=== PATIENT | male | born 1960 | race Hispanic/Latino ===

== ENCOUNTER 2016-10-05 02:30 | Inpatient (IN) | payer OTHER ==
[~2016-10-05] VITALS: Ht 175.3 cm; Wt 98.0 kg
[~2016-10-05 02:30] MED LIST: AMITRIPTYLINE H25 M2 PO; CRESTOR10 M1 PO; CRESTOR40 M2 PO; CYCLOBENZAPRINE5 M2 PO; DIVALPROEX SOD500 M3 PO; LORTAB 10-3251 EACH PO; MEDROL4 M2 PO; NAPROXEN500 M2 PO; PANTOPRAZOLE SO40 M1 PO; PERCOCET 5-3251 EACH PO; VITAMIN D1000 UNIT PO; VITAMIN D250000 UNIT PO
--- NOTE | 2016-10-05 10:14 | Operative Report ---
Operative/Inv Procedure Report Surgery Date: 10/05/16 Name of Procedure: Right total knee arthroplasty Pre-Operative Diagnosis: Right knee degenerative joint disease Post-Operative Diagnosis: Right knee degenerative joint disease Estimated Blood Loss: 50ml to 100ml Surgeon/Pattern Worker: DANIA TREVIÑO,TIKI SOL Anesthesia: block, spinal Implants: [employer] size 6 right cruciate retaining legion Oxinium femoral component. Size 6 Nat II right nonporous tibial baseplate. Size 5-6 9 mm Legion cruciate retaining XLPE high flexion articular insert. Size 23 mm Nat II biconvex patellar component. Complications: None Condition: Stable to PACU Operative Indication: This is a 56-year-old male with severe right knee pain that has failed conservative care as well as arthroscopy. Risks and benefits of the procedure were discussed with the patient at length. Risks include but are not limited to nerve damage, muscle damage, infection, blood loss, blood clots, pulmonary embolus, and even . The patient agreed to the above risks and elected to proceed with surgery. Operative/Procedure Note Note: The patient was taken to the operating room. Anesthesia was induced after the timeout was performed. The lower extremity was prepped and draped in the normal sterile fashion. IV antibiotics were given prior to incision. The site marking was visualized prior to incision. After the leg was prepped and draped, an esmarch was used to exsanguinate the extremity. The tourniquet was inflated. A midline incision was made proximal to the patella extending down to the tibial tubercle. A medial parapatellar approach was then made. The skin was retracted and the extensor mechanism was incised. The knee was taken down into full extension. The patellar fat pad was resected. The medial retinaculum was then taken down. The synovium over the distal femur was then resected. The patella was everted and the knee was flexed up. The lateral meniscus was then excised. The ACL was removed. A drill was then used to open up the distal femur. The intramedullary guide was then applied. A 6 distal femoral cut was then made. The femur was then sized. The chamfer guide was then applied. The anterior, posterior, and chamfer cuts were then made while protecting the patellar tendon with a Hohmann retractor in the medial collateral ligament with a Z retractor. A pickle fork was then used to deliver the tibia. The extramedullary tibial guide was then applied. The proximal tibial cut was made. The medial and lateral meniscus were then excised. The osteophytes were removed with a Rongeur. The tibia was sized and the trial base plate was then pinned in place. A trial femoral component was placed and a trial polyethylene insert was then applied as well. It was noted to be tight as such the tibia was recut and the flexion and extension gaps were then checked. The femoral trial as well as tibial trial was then again pinned in place. The poly-trial was placed. The knee was taken through a range of motion and was noted to be quite stable. The patella was then everted, sized, and then reamed. A trial patellar component was placed and the knee was taken through range of motion. The patella was noted to be quite stable. All trial instruments were then removed. The knee was copiously irrigated. Retractors were placed in the final components were then cemented in. A trial polyethylene insert was then placed. After the cement was hardened, the excess cement was removed. The trial poly-insert was then removed. The knee was copiously irrigated. The final poly insert was inserted. The tourniquet was let down. Any bleeding vessels were identified and cauterized. A 1/8 inch Hemovac drain was then placed. The extensor mechanism was closed with #1 Vicryl suture in a simple interrupted fashion. The skin was closed with 2-0 Vicryl suture. A running subcuticular 4-0 Monocryl stitch was then placed. Dermabond was applied. A dry sterile dressing was placed and patient was transferred to PACU in stable condition.
--- NOTE | 2016-10-05 10:29 | Admission Core Measures ---
Admission Meds I reviewed the following Meds: Current Medications Sig/Cyndi Start time Last Medication Dose Stop Time Status Admin Cefazolin Sodium 2,000 MG ONCE 10/05 0000 NR (Kefzol-Ancef Inj) 10/05 2359 Ropivacaine 500 ML ONCE ONE 10/05 0900 AC (NAROPIN) 10/07 0239 ON-Q Ball 1 BAG Acute Coronary Syndrome Inclusion Criteria ACS Diagnosis No Inpatient Core Measures LDL Reminder: If No, please order W/I first 24hr of stay Congestive Heart Failure Inclusion Criteria CHF Diagnosis No Cerebrovascular accident Inclusion Criteria CVA/TIA Diagnosis No Inpatient Core Measures Bedside Swallow Eval Reminder: If BSE failed, place ST order Antithrombotic Reminder: Order Antithrombotic Medication by end of day 2 Antithrombotic Reminder: Document Reason Antithrombotic Not ordered by end of day 2 AFIB/Flutter Reminder: If Present, add to problem list AFIB/Flutter Reminder: Order Anticoag Medication for pts with AFIB/Flutter Atherosclerosis Reminder: If Present, add to problem list LDL Reminder: If No, please order W/I first 24hr of stay PT Order Reminder: If No, please order Venous thromboembolism Inpatient Core Measures VTE Risk Factors: Age > 40, Surgery VTE Prophylaxis Ordered Inpt Mech & Pharm No Mech VTE prophylaxis d/t No contraindications No VTE Pharm Prophylaxis d/t No contraindications Inclusion Criteria - Per Current guidelines, there needs to be overlap - treatment for the first 5 days of Warfarin therapy. - Parenteral Anticoagulation (IV or SC) needs to be - given along with Warfarin therapy. VTE Diagnosis No VTE Type NONE VTE Confirmed by (Test) NONE Problem List As ranked by this Provider includes Assessment & Plan 1. S/P total knee arthroplasty HOME MEDS Home Med List Amitriptyline HCl 25 MG TABLET 1 TAB PO BID PAIN (Reported) Cholecalciferol (Vitamin D3) (Vitamin D) 1,000 UNIT TABLET 1 TAB PO DAILY SUPPLEMENT (Reported) Divalproex Sodium (Divalproex Sodium ER) 500 MG TAB.ER.24H 2 TAB PO BID SEIZURES/PAIN (Reported) Naproxen 500 MG TABLET 1 TAB PO DAILY PAIN (Reported) Rosuvastatin Calcium (Crestor) 40 MG TABLET 1 TAB PO DAILY CHOLESTEROL ( Reported)
--- NOTE | 2016-10-05 15:30 | NUR ---
NURSING NOTE: PATIENT ARRIVED TO FLOOR VIA STRETCHER WITH DISTRIBUTION FROM PACU. PATIENT A/OX3, C/O PAIN TO R KNEE 04/09. DILAUDID GIVEN PER ORDER. ON Q PUMP IN PLACE TO R ADDUCTOR CANAL 5CM RUNNING AT 14ML/HR ALL CLAMPS OPEN. RAJESH WRAP IN PLACE TO RLE. + CMS NOTED. VSS. WILL CONTINUE TO MONITOR.
[2016-10-05 16:00] VITALS: BP 150/92
--- NOTE | 2016-10-05 17:38 | PN- Orthopedic ---
Subjective Subjective: Post Op Note s/p right TKA Patient without c/o. Pain well controlled. Tolerating PO, no n/v. OOB to bathroom. unable to void denies CP/SOB Objective Vital Signs and I&Os Vital Signs Date Time Temp Pulse Resp B/P Pulse O2 O2 Flow FiO2 Ox Delivery Rate 10/05 1729 Room Air Room Air 10/05 1600 99.3 88 18 150/92 92 Room Air Physical Exam: General: NAD, comfortable, A&Ox3 Chest: CTAB. Heart S1S2 normal. Abdomen: soft, nontender, nondistended. Ext: Right knee dressing c/d/i. On Q pump in place. CAROLINE drain in place with serosanguineous drainage. No calve swelling/TTP, neurovascularly intact bilateral lower extremities Current Medications: Current Medications Sig/Cyndi Start time Last Medication Dose Route Stop Time Status Admin Acetaminophen 1,000 MG .STK-MED ONE 10/05 704 DC IV 10/05 07 Amitriptyline HCl 25 MG BID 10/05 2200 AC PO Atorvastatin Calcium 80 MG 1700 10/05 1700 AC PO Cefazolin Sodium 2,000 MG IQ8 10/05 1600 AC IV 10/06 0001 Cefazolin Sodium 2,000 MG ONCE 10/05 0000 DC IV 10/05 2359 Divalproex Sodium 1,000 MG BID 10/05 2200 AC PO Docusate Sodium 100 MG DAILY 10/06 1000 AC PO Enoxaparin Sodium 40 MG DAILY 10/06 1000 UNVr SC Fentanyl Citrate 100 MCG .STK-MED ONE 10/05 704 DC IM 10/05 07 Hydromorphone HCl 1 MG Q3P PRN 10/05 1545 AC 10/05 IV 1557 Midazolam HCl 2 MG .STK-MED ONE 10/05 704 DC IM 10/05 07 Omeprazole 40 MG DAILY AC 10/06 0700 AC PO Ondansetron HCl 4 MG Q6P PRN 10/05 1545 AC IV Oxycodone/ 1 TAB Q4P PRN 10/05 1545 AC Acetaminophen PO Oxycodone/ 2 TAB Q4P PRN 10/05 1545 AC Acetaminophen PO Polyethylene Glycol 17 GM DAILY 10/06 1000 AC PO Prochlorperazine 10 MG Q6P PRN 10/05 1545 AC PO Ropivacaine 500 ML ONCE ONE 10/05 0900 DC ON-Q Ball 1 BAG INJ 10/07 0239 Sodium Chloride 1,000 ML .[id number] 10/05 1545 AC 10/05 IV 1556 Tranexamic Acid 2,000 MG .STK-MED ONE 10/05 0705 DC IV 10/05 07 Assessment/Plan Assessment/Plan 56yo M POD#0 s/p right TKA. AVSS, patient stable. - pain control - PRN zofran - OOB with PT, WBAT - I/O's - Lovenox in a.m. - f/u void - CAROLINE to bulb suction - continue On Q pump - ALPS - diet as tolerated Core Measures/Miscellaneous Venous Thromboembolism VTE Risk Factors: Age > 40, Surgery VTE Contraindications: No Contraindications VTE Prophylaxis Ordered Inpt: Mech & Pharm VTE Diagnosis: No VTE Type: NONE VTE Confirmed by (Test): NONE Beta Paulina Is Beta Paulina a Home Med? No Antibiotics Is Patient on Antibiotics? Yes If Yes: prophylaxis
[2016-10-05 18:30] VITALS: BP 174/90
--- NOTE | 2016-10-05 19:59 | NUR ---
NURSING NOTE: PATIENT CALLED THIS NURSE INTO HIS ROOM C/O INABILITY TO PEE, SEVERE PRESSURE AND PAIN IN ABDOMEN. SURGICAL PA JUAREZ NOTIFIED. T.O. FOR FLOMAX 0.4MG PO X1, AND STRAIGHT CATH X1. ORB AND VERIFIED AND SENT TO PHARMACY. STRAIGHT CATH PERFORMED WITH 500CC PINK CLEAR URINE OBTAINED WITH 2 SMALL BLOOD CLOTS. PATIENT EXPRESSES RELIEF. WILL NOTIFIED SURGICAL PA AND CONTINUE TO MONITOR.
[2016-10-05 20:10] VITALS: BP 124/94
[2016-10-05 22:30] VITALS: BP 120/90
[2016-10-06 02:13] VITALS: BP 108/68
[2016-10-06 04:32] VITALS: BP 112/72
[2016-10-06 07:50] LABS: ABSOLUTE BASOPHIL COUNT 0 /CUMM (0.0-0.2); ABSOLUTE EOSINOPHIL COUNT 0 /CUMM (0.0-0.7); ABSOLUTE GRANULOCYTE CT 6.7 /CUMM (1.4-6.5); ABSOLUTE LYMPH COUNT 2.2 /CUMM (1.2-3.4); ABSOLUTE MONOCYTE COUNT 1.7 /CUMM (0.10-0.60); BASOPHIL % 0.4 % (0.0-2.0); EOSINOPHIL % 0.3 % (0-5); GRANULOCYTE % 62.5 % (42.2-75.2); HEMATOCRIT 37.3 % (42-52); MEAN CORPUSCULAR HGB 28.4 PG (27.0-31.0); MEAN CORPUSCULAR HGB CONC 34.7 G/DL (33.0-37.0); MEAN CORPUSCULAR VOLUME 81.9 FL (80.0-94.0); MEAN PLATELET VOLUME 9.2 FL (7.4-10.4); PLATELET COUNT 150 /CUMM (130-400); RED BLOOD CELL CT 4.55 /CUMM (4.70-6.10); WHITE BLOOD CELL COUNT 10.8 /CUMM (4.8-10.8)
[2016-10-06 08:13] VITALS: BP 101/75
[2016-10-06 11:45] VITALS: BP 100/57
[2016-10-06 16:23] VITALS: BP 160/89
--- NOTE | 2016-10-06 21:01 | NUR ---
NURING NOTE: PATIENT'S TEMP 103.4 @ 1634. NOTIFIED SURGICAL PA SUMMER. GAVE TYLENOL 650MG AND ENCOURAGED PO FLUIDS. COLD COMPRESS TO FOREHEAD. RECHECKED TEMP 100.3 @1800. NOTIFIED
[2016-10-06 21:37] VITALS: BP 162/90
--- NOTE | 2016-10-06 22:58 | RADIOLOGY REPORT ---
EXAMINATION: XR PORTABLE CHEST CLINICAL INFORMATION: Fever and hypoxia. COMPARISON: None. TECHNIQUE: AP portable chest 10:37 PM FINDINGS: Lung volume low. Linear subsegmental atelectasis at right lung base. No dense consolidation. No pleural effusion or pulmonary vascular congestion. IMPRESSION: Low lung volume. Subsegmental atelectasis right lung base.
[2016-10-07 00:31] VITALS: BP 140/84
[2016-10-07 03:59] VITALS: BP 152/79
[2016-10-07 07:49] LABS: ABSOLUTE BASOPHIL COUNT 0 /CUMM (0.0-0.2); ABSOLUTE EOSINOPHIL COUNT 0 /CUMM (0.0-0.7); ABSOLUTE GRANULOCYTE CT 8.7 /CUMM (1.4-6.5); ABSOLUTE LYMPH COUNT 1.8 /CUMM (1.2-3.4); BASOPHIL % 0.3 % (0.0-2.0); EOSINOPHIL % 0.3 % (0-5); GRANULOCYTE % 69.5 % (42.2-75.2); HEMATOCRIT 34.8 % (42-52); MEAN CORPUSCULAR HGB 28.5 PG (27.0-31.0); MEAN CORPUSCULAR HGB CONC 34.5 G/DL (33.0-37.0); MEAN CORPUSCULAR VOLUME 82.5 FL (80.0-94.0); MEAN PLATELET VOLUME 9.1 FL (7.4-10.4); PLATELET COUNT 138 /CUMM (130-400); RBC DISTRIBUTION WIDTH 15.2 % (11.5-14.5); RED BLOOD CELL CT 4.21 /CUMM (4.70-6.10); WHITE BLOOD CELL COUNT 12.5 /CUMM (4.8-10.8)
--- NOTE | 2016-10-07 08:17 | NUR ---
PHYSICAL THERAPY: HOLD PT THIS AM PER PA TO RULE OF POSSIBLE PE. WILL FOLLOW-UP PER RESULTS.
[2016-10-07 08:32] VITALS: BP 160/84
--- NOTE | 2016-10-07 08:53 | PN- Orthopedic ---
See Addendum Surgical Brief Attending Note Brief Attending Note: Patient resting in bed, c/o right knee pain afebrile, tachy 100's. RLE - +EHL/FHL +sens m/l/1st DWS calf soft, compressible dressing intact A/P - POD 1 s/p right TKA WBAT PT Lovenox for DVT prophylaxis Finish ancef today Encouraged incenstive spirometry for likely atelcatasis causing mild tachycardia Will at toradol to improve pain
--- NOTE | 2016-10-07 10:11 | NUR ---
LATE ENTRY FOR 10/06/16 2140 SURGICAL PA Vandana NOTIFIED OF VITAL SIGNS AT THIS TIME. TEMP 102.2/HEART RATE 115/OXYGEN SATURATION 90% ON ROOM AIR. SEE VSIGNS ENTERED. SEE NEW ORDERS FOR TYLENOL/BLOOD WORK/CXR/IVF. SURGICAL PA HERE TO EVALUATE THE PT. 10/07/16 0030 REPORTED TO SURGICAL PA Gail. TEMP 100/HEART RATE 100. 0400 REPORTED TO SURGICAL PA GDevorahPDevorah TEMP 99.6/HEART RATE 116. 0500 REPORTED TO SURGICAL PA G.P. PT C/O ABDOMINAL BLOATING AND INABILITY TO VOID. BLADDER SCAN DONE FOR 400ML. SEE ST CATH ORDERS/CHARTING. PT ALSO C/O GENERALIZED ITCHING-THIS REPORTED TO SURGICAL-SEE EMAR FOR MEDS.
--- NOTE | 2016-10-07 10:20 | ULTRASOUND REPORT ---
EXAMINATION: US TRIPLEX LOWER EXTREMITY, RIGHT CLINICAL INFORMATION: Right leg swelling and pain. Postop knee surgery COMPARISON: None. TECHNIQUE: Color-flow triplex imaging with spectral analysis and compression Doppler were performed on the right lower extremity. FINDINGS: Respiratory variation, normal compression and augmented flow are noted throughout the lower extremity. The visualized common femoral vein, superficial femoral vein, profunda femoral vein, popliteal vein and mid calf peroneal and posterior tibial venous segments show no evidence of deep venous thrombosis. There is no Lunsford's cyst. IMPRESSION: Normal triplex scan without evidence of deep venous thrombosis involving the right lower extremity.
--- NOTE | 2016-10-07 14:16 | Cons- Cardiology ---
General Information and HPI Consulting Request Date of Consult: 10/07/16 Requested By: TIKI NAJERA MD Reason for Consult: Tachycardia in a postoperative knee replacement patient Source of Information: patient, old records Exam Limitations: no limitations History of Present Illness: The patient is a 56-year-old man who underwent right knee replacement electively 2 days ago. Today he was noted to be febrile to 102 maximum and also tachycardic to about 110. His preoperative electrocardiogram was normal. His EKG done today shows sinus tachycardia with some minor nonspecific T-wave changes. The patient states he has no history of heart disease. He does take a statin for high cholesterol but no blood pressure medication etc. He states he has [place] previous cardiac testing [place] and everything came out okay. He currently has no chest pain, shortness of breath. He is aware that his heart is going a little fast. The patient had a Whyte placed because of difficulty voiding. Allergies/Medications Allergies: Coded Allergies: shellfish derived (Severe, ANAPHYLAXIS 10/05/16) aspirin (Intermediate, HIVES 10/05/16) iodine (Intermediate, 10/05/16) Home Med List: Amitriptyline HCl 25 MG TABLET 1 TAB PO BID PAIN (Reported) Cholecalciferol (Vitamin D3) (Vitamin D) 1,000 UNIT TABLET 1 TAB PO DAILY SUPPLEMENT (Reported) Divalproex Sodium (Divalproex Sodium ER) 500 MG TAB.ER.24H 2 TAB PO BID SEIZURES/PAIN (Reported) Naproxen 500 MG TABLET 1 TAB PO DAILY PAIN (Reported) Rosuvastatin Calcium (Crestor) 40 MG TABLET 1 TAB PO DAILY CHOLESTEROL ( Reported) Current Medications: Current Medications Sig/Cyndi Start time Last Medication Dose Route Stop Time Status Admin Acetaminophen 650 MG Q4P PRN 10/06 1530 AC 10/06 PO 2142 Amitriptyline HCl 25 MG BID 10/05 2200 AC 10/07 PO 0852 Atorvastatin Calcium 80 MG 1700 10/05 1700 AC 10/06 PO 1556 Dextrose/Sodium 1,000 ML Q6H 10/06 2145 AC 10/07 Chloride IV 0831 Diphenhydramine HCl 25 MG Q6P PRN 10/07 0445 AC 10/07 PO 0507 Divalproex Sodium 1,000 MG BID 10/05 2200 AC 10/07 PO 0851 Docusate Sodium 100 MG DAILY 10/06 1000 AC 10/07 PO 0852 Enoxaparin Sodium 40 MG DAILY 10/06 1000 AC 10/07 SC 0852 Hydromorphone HCl 1 MG Q3P PRN 10/05 1545 AC 10/07 IV 1154 Ketorolac 30 MG Q6-PRN PRN 10/06 0645 AC Tromethamine IV Omeprazole 40 MG DAILY AC 10/06 0700 AC 10/07 PO 0507 Ondansetron HCl 4 MG Q6P PRN 10/05 1545 AC IV Oxycodone/ 1 TAB Q4P PRN 10/05 1545 AC Acetaminophen PO Oxycodone/ 2 TAB Q4P PRN 10/05 1545 AC 10/06 Acetaminophen PO 0813 Polyethylene Glycol 17 GM DAILY 10/06 1000 AC 10/07 PO 0853 Prochlorperazine 10 MG Q6P PRN 10/05 1545 AC PO Tamsulosin HCl 0.4 MG DAILY 10/07 1045 AC 10/07 PO 1204 Trimethoprim/ 1 TAB BID 10/07 1037 AC 10/07 Sulfamethoxazole PO 1201 Review of Systems Review of Systems: He has no other complaints in the review of systems at this time. Past History Medical History Blood Transfusion Hx: No Neurological: seizure, TUMOR EENT: NONE Cardiovascular: hyperlipidemia Respiratory: NONE Gastrointestinal: HERNIA Hepatic: NONE Renal: KIDNEY STONES Musculoskeletal: osteoarthritis Psychiatric: NONE Endocrine: NONE Blood Disorders: NONE Cancer(s): BRAIN TUMOR HEALTH NAVIGATOR/Reproductive: NONE Surgical History Surgical History: BRAIN SURGERY SINUS SURGERY Psychosocial History Where Do You Live? Home Services at Home: None Smoking Status: Unknown If Ever Smoked Exam & Diagnostic Data Vital Signs and I&O Vital Signs Date Time Temp Pulse Resp B/P Pulse O2 O2 Flow FiO2 Ox Delivery Rate 10/07 1204 114 160/84 10/07 0832 99.7 114 20 160/84 96 Nasal 3.0L Cannula 10/07 0359 99.3 116 20 152/79 91 10/07 0031 100.0 100 20 140/84 95 10/06 2240 100.0 10/06 2142 102.2 10/06 2136 102.2 115 18 162/90 90 10/06 1633 103.4 10/06 1623 102.4 114 20 160/89 90 10/06 1535 102.4 Intake & Output 10/07 1600 10/07 0800 10/07 0000 10/06 1600 10/06 0800 10/06 0000 Intake Total 1600 837 756 8161 1400 Output Total 1720 725 400 550 770 800 Balance -1720 875 -10 170 670 600 Intake, IV 7524 805 0541 700 Intake, Oral 400 240 720 240 700 Number 0 0 0 Bowel Movements Output, 170 300 Drainage Output, Urine 1720 725 400 550 600 500 Patient 216 lb Weight Physical Exam: He is mildly overweight middle-aged man in no acute distress HEENT exam is normal Neck veins are not distended Chest is clear Heart reveals a regular rhythm, mildly tachycardic with no murmurs gallops or rubs Extremities reveal no edema and pulses are present. There is no calf tenderness. Labs/Jesus Results: Laboratory Tests 10/07 10/07 0930 0620 Chemistry Sodium (137 - 145 mmol/L) 136 L Potassium (3.5 - 5.1 mmol/L) 4.0 Chloride (98 - 107 mmol/L) 95 L Carbon Dioxide (22 - 30 mmol/L) 30 Anion Gap (5 - 16) 11 BUN (9 - 20 mg/dL) 14 Creatinine (0.7 - 1.2 mg/dL) 1.1 Estimated GFR (>60 ml/min) > 60 BUN/Creatinine Ratio (7 - 25 %) 12.7 Hematology CBC w Diff NO MAN DIFF REQ WBC (4.8 - 10.8 /CUMM) 12.5 H RBC (4.70 - 6.10 /CUMM) 4.21 L Hgb (14.0 - 18.0 G/DL) 12.0 L Hct (42 - 52 %) 34.8 L MCV (80.0 - 94.0 FL) 82.5 MCH (27.0 - 31.0 PG) 28.5 RDW (11.5 - 14.5 %) 15.2 H Plt Count (130 - 400 /CUMM) 138 MPV (7.4 - 10.4 FL) 9.1 Gran % (42.2 - 75.2 %) 69.5 Lymphocytes % (20.5 - 51.1 %) 14.0 L Monocytes % (1.7 - 9.3 %) 15.9 H Eosinophils % (0 - 5 %) 0.3 Basophils % (0.0 - 2.0 %) 0.3 Absolute Granulocytes (1.4 - 6.5 /CUMM) 8.7 H Absolute Lymphocytes (1.2 - 3.4 /CUMM) 1.8 Absolute Monocytes (0.10 - 0.60 /CUMM) 2.0 H Absolute Eosinophils (0.0 - 0.7 /CUMM) 0 Absolute Basophils (0.0 - 0.2 /CUMM) 0 PUBS MCHC (33.0 - 37.0 G/DL) 34.5 Urines Urinalysis LIGHT H Urine Color (YEL,AMB,STR) YEL Urine Clarity (CLEAR) HAZY H Urine pH (5.0 - 8.0) 6.0 Ur Specific [place] (1.001 - 1.035) 1.020 Urine Protein (NEG,<30 MG/DL) TRACE H Urine Ketones (NEG) TRACE H Urine Nitrite (NEG) NEG Urine Bilirubin (NEG) NEG Urine Urobilinogen (0.1 - 1.0 EU/dl) 0.2 Ur Leukocyte Esterase (NEG) TRACE H Ur Microscopic SEDIMENT EXAMINED Urine RBC (0 - 5 /HPF) 5-10 H Urine WBC (0 - 2 /HPF) 1-3 H Ur Epithelial Cells (NONE,FEW) RARE Urine Mucus (FEW,NONE) FEW Urine Hemoglobin (NEG) MOD H Urine Glucose (N MG/DL) NEG 10/06 0645 Chemistry Sodium (137 - 145 mmol/L) 135 L Potassium (3.5 - 5.1 mmol/L) 3.8 Chloride (98 - 107 mmol/L) 94 L Carbon Dioxide (22 - 30 mmol/L) 28 Anion Gap (5 - 16) 13 BUN (9 - 20 mg/dL) 21 H Creatinine (0.7 - 1.2 mg/dL) 1.1 Estimated GFR (>60 ml/min) > 60 BUN/Creatinine Ratio (7 - 25 %) 19.1 Hematology CBC w Diff NO MAN DIFF REQ WBC (4.8 - 10.8 /CUMM) 10.8 RBC (4.70 - 6.10 /CUMM) 4.55 L Hgb (14.0 - 18.0 G/DL) 12.9 L Hct (42 - 52 %) 37.3 L MCV (80.0 - 94.0 FL) 81.9 MCH (27.0 - 31.0 PG) 28.4 RDW (11.5 - 14.5 %) 15.0 H Plt Count (130 - 400 /CUMM) 150 MPV (7.4 - 10.4 FL) 9.2 Gran % (42.2 - 75.2 %) 62.5 Lymphocytes % (20.5 - 51.1 %) 20.6 Monocytes % (1.7 - 9.3 %) 16.2 H Eosinophils % (0 - 5 %) 0.3 Basophils % (0.0 - 2.0 %) 0.4 Absolute Granulocytes (1.4 - 6.5 /CUMM) 6.7 H Absolute Lymphocytes (1.2 - 3.4 /CUMM) 2.2 Absolute Monocytes (0.10 - 0.60 /CUMM) 1.7 H Absolute Eosinophils (0.0 - 0.7 /CUMM) 0 Absolute Basophils (0.0 - 0.2 /CUMM) 0 PUBS MCHC (33.0 - 37.0 G/DL) 34.7 Diagnostic Data EKG Results EKG today shows sinus tachycardia rate 103 with minor nonspecific inferolateral T-wave changes. There are small inferior Q waves. Preoperative EKG done earlier in August showed entirely normal electrocardiogram. CXR Results PATIENT: ABEL MEDEIROS PRESENT AGE: 56 PATIENT ACCOUNT NO: [id number] : 56 LOCATION: 2NB ORDERING PHYSICIAN: LAURENCE GRACIA PA-C SERVICE DATE: 10/06/16- EXAM TYPE: RAD - XRY-PORTABLE CHEST XRAY EXAMINATION: XR PORTABLE CHEST CLINICAL INFORMATION: Fever and hypoxia. COMPARISON: None. TECHNIQUE: AP portable chest 10:37 PM FINDINGS: Lung volume low. Linear subsegmental atelectasis at right lung base. No dense consolidation. No pleural effusion or pulmonary vascular congestion. IMPRESSION: Low lung volume. Subsegmental atelectasis right lung base. DICTATED BY: MEE PERSON MD DATE/TIME DICTATED:10/06/162253 AUTOMATION MACHINE OPERATOR:LUIS DATE/TIME TRANSCRIBED:10/06/162253 CONFIDENTIAL, DO NOT COPY WITHOUT APPROPRIATE AUTHORIZATION. <Electronically signed in Other Vendor System> SIGNED BY: MEE PERSON MD 10/06/162257 Other Results PATIENT: ABEL MEDEIROS PRESENT AGE: 56 PATIENT ACCOUNT NO: [id number] : 56 LOCATION: 2NB ORDERING PHYSICIAN: DUNG FERGUSON PA-C SERVICE DATE: 10/07/16- EXAM TYPE: US - US-UNILATERAL VENOUS DOPPLER EXAMINATION: US TRIPLEX LOWER EXTREMITY, RIGHT CLINICAL INFORMATION: Right leg swelling and pain. Postop knee surgery COMPARISON: None. TECHNIQUE: Color-flow triplex imaging with spectral analysis and compression Doppler were performed on the right lower extremity. FINDINGS: Respiratory variation, normal compression and augmented flow are noted throughout the lower extremity. The visualized common femoral vein, superficial femoral vein, profunda femoral vein, popliteal vein and mid calf peroneal and posterior tibial venous segments show no evidence of deep venous thrombosis. There is no Lunsford's cyst. IMPRESSION: Normal triplex scan without evidence of deep venous thrombosis involving the right lower extremity. DICTATED BY: JUAN JOSÉ RONDON MD DATE/TIME DICTATED:10/07/161013 AUTOMATION MACHINE OPERATOR:LUIS DATE/TIME TRANSCRIBED:10/07/161013 CONFIDENTIAL, DO NOT COPY WITHOUT APPROPRIATE AUTHORIZATION. <Electronically signed in Other Vendor System> SIGNED BY: JUAN JOSÉ RONDON MD 10/07 1020 Assessment/Plan Assessment/Plan This patient has developed a mild tachycardia and a fever postoperatively 2 days from knee replacement surgery. There are no cardiac symptoms. The EKG does not show any acute changes, just some nonspecific changes. Most likely his fever is from atelectasis as noted on chest x-ray although other infection should be ruled out. His venous Doppler study was negative suggesting that there is no evidence of pulmonary embolism etc. However he cannot have a CTA because of dye allergy. He may be able to get a VQ scan but this can't be done until 10/09/2016. At this point I recommend just monitoring his vital signs. He does not need to go to telemetry. Full anticoagulation should be considered until a definitive study such as a VQ scan can be done. In the meantime incentive spirometry and respiratory treatments should be instituted. Urine and sputum cultures should be obtained and his wound inspected for inflammation or infection. Consult Acknowledgment - Thank you for your consult request.
--- NOTE | 2016-10-07 14:21 | Surgical Discharge Summary ---
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 Home Who Do You Live With? Spouse Services at Home: None What is Your Primary Language? Kazakh Review of Systems: see H&P Hospital Course Course Attending Physician: TIKI CASTELLANO MD Primary Care Physician: MATHIEU TREVIÑO,[facility] Course: Mr. Mayo is a 56 year old male who was found to have degenerative joint disease in his right knee. He underwent an elective total knee replacement on 10/05/[address] Castellano. Post-operatively, he was tachycardic, attributing it to pain. His diet was advanced and he was able to void spontaneously. His labs were within normal limits. His pain was controlled with PO pain medication and he was seen by physical therapy. From POD #1-3 he spiked temperatures upwards of 103F. Blood and urine cultures were drawn. His urinalysis was positive and was started on Bactrim PO. He still required oxygen and being concerned for a PE, a right lower extremity doppler was performed, negative for DVT. The patient could not have a CTA chest due to the patient's iodine allergy (coded in another hospital after administration of dye) and nuclear medicine was not available for a VQ scan. He was evaluated by cardiology and they recommended consideration of full anticoagulation. He was not fully anticoagulated as the patient was told never to take aspirin therapy after being treated for a brain tumor. That being said, he remained on Lovenox 40 mg daily and his vitals were monitored. On 10/09, he had a VQ scan which was negative. This was discussed with Cardiology Dr Handy as he still had tachycardia and he was begun on lopressor 25mg po bid per his recommendations. He also suffered from inability to void post op which continued. He has a history of the same. He was evaluated by Dr Comer of urology on 10/09 and had a void trial on that day which he failed. A post void residual was >400cc therefore a velásquez was replaced and he was to follow up with Dr Comer in 4 days and go home with the velásquez catheter. He was also seen in consultation by (ID). He recommended empiric treatment with Vancomycin and Ceftazidime for possible septic right knee joint/ prosthesis, with culture of the synovial fluid remaining negative to date. Unfortunately he was on antibiotics for several days prior to the aspiration, which may affect the culture, which left a concern about the possibility of an infection within the joint, given the markedly elevated white blood cell count in the synovial fluid. would like the patient to be discharged home with antibiotics for cellulitis. Although disagrees with antibiotics at discharge, they have discussed sending him home with augmentin twice daily, for 4 more days (to complete 10 days of antibiotics). He will also be given prescriptions for lovenox 40 mg daily, celebrex, dilaudid, and lopressor. He will need to see within a week for velásquez removal and voiding trial, and also make an appointment to see within the next 10-14 days. Complications: see hospital course Allergies: Coded Allergies: shellfish derived (Severe, ANAPHYLAXIS 10/05/16) aspirin (Intermediate, HIVES 10/05/16) iodine (Intermediate, 10/05/16) Disposition Summary Disposition Principal Diagnosis: primary DJD Additional Diagnosis: Surgery Date: 10/05/16 Name of Procedure: Right total knee arthroplasty post-op tachycardia r/o pe post-op urinary retention requiring velásquez replacement post-op leukocytosis / fevers s/p joint aspiration and presumptive treatment septic joint Discharge Disposition: home health services Discharge Instructions General Discharge Information Code Status: Full Code Patient's Diet: regular diet as tolerated Patient's Activity: weight bearing as tolerated. ambulate with rolling walker assistance. Follow-Up Instructions/Appts: call 's office to schedule an appointment for velásquez removal and voiding trial within 1 week call 's office to schedule follow up appointment within 10-14 days after discharge Medications at Discharge Discharge Medications: Stop taking the following medications: Naproxen (Naproxen) 500 MG TABLET ORAL DAILY Continue taking these medications: Divalproex Sodium (Divalproex Sodium ER) 500 MG TAB.ER.24H 2 Tablet ORAL TWICE DAILY Qty = 360 Comments: Last Taken: 10/13/16 Time: 9am Amitriptyline HCl (Amitriptyline HCl) 25 MG TABLET 1 Tablet ORAL TWICE DAILY Qty = 60 Comments: Last Taken: 10/13/16 Time: 9AM Rosuvastatin Calcium (Crestor) 40 MG TABLET 1 Tablet ORAL DAILY Comments: Last Taken: 10/12/16 Time: 6 pm Cholecalciferol (Vitamin D3) (Vitamin D) 1,000 UNIT TABLET 1 Tablet ORAL DAILY Comments: NOT GIVEN IN HOSPITAL Start taking the following new medications: Tamsulosin HCl (Flomax) 0.4 MG CAP.ER.24H 1 Tablet ORAL DAILY Qty = 30 No Refills Comments: Last Taken: 10/13/16 Time: 9am Enoxaparin Sodium (Lovenox) 40 MG/0.4 ML SYRINGE 1 Syringe Inject into fatty tissue DAILY Qty = 30 No Refills Comments: Last Taken: 10/13/16 Time: 9 am Hydromorphone HCl (Hydromorphone HCl) 2 MG TABLET 1-2 Tablet ORAL EVERY 4 HOURS NEEDED as needed for PAIN Qty = 36 No Refills Comments: Last Taken: 10/12/16 Time: 9PM Metoprolol Tartrate (Metoprolol Tartrate) 25 MG TABLET 1 Tablet ORAL TWICE DAILY Qty = 60 No Refills Comments: Last Taken: 10/13/16 Time: 9 am Celecoxib (Celebrex) 200 MG CAPSULE 1 Capsule ORAL DAILY Qty = 30 No Refills Comments: Last Taken: 10/12/16 Time: 9 pm Amoxicillin/Potassium Clav (Augmentin 875-125 Tablet) 875 MG-125 MG TABLET 1 Tablet ORAL TWICE DAILY Qty = 10 No Refills Instructions: take with food. Copies To: VAN MURDOCK MD
--- NOTE | 2016-10-07 14:34 | PN- Orthopedic ---
Surgical Brief Attending Note Brief Attending Note: c/o right knee pain Afebrile, tachy 100s-110s RLE - +EHL/FHL calf soft, nontender to compression mild knee swelling as expected no drainage, no increased warmth at the knee A/P - POD 2 s/p R TKA -WBAT -PT -velásquez placed for retention, may need to be d/c'd with velásquez in place -Appreciate cardiology consultation, will monitor for now -U/S RLE negative for DVT, possible V/Q scan Sunday if tachycardia persists -continue Lovenox for DVT prophlaxis -encouraged continued incentive spirometry -Bactrim for presumed UTI, cultures pending
[2016-10-07 16:11] VITALS: BP 132/78
[2016-10-07 17:41] VITALS: BP 138/78
[2016-10-08 00:40] VITALS: BP 157/76
[2016-10-08 04:00] VITALS: BP 156/70
[2016-10-08 08:18] LABS: ABSOLUTE BASOPHIL COUNT 0 /CUMM (0.0-0.2); ABSOLUTE EOSINOPHIL COUNT 0.2 /CUMM (0.0-0.7); ABSOLUTE GRANULOCYTE CT 6.5 /CUMM (1.4-6.5); ABSOLUTE LYMPH COUNT 1.9 /CUMM (1.2-3.4); ABSOLUTE MONOCYTE COUNT 1.6 /CUMM (0.10-0.60); BASOPHIL % 0.3 % (0.0-2.0); EOSINOPHIL % 1.5 % (0-5); GRANULOCYTE % 63.7 % (42.2-75.2); HEMATOCRIT 32.5 % (42-52); MEAN CORPUSCULAR HGB 28.2 PG (27.0-31.0); MEAN CORPUSCULAR HGB CONC 34.2 G/DL (33.0-37.0); MEAN CORPUSCULAR VOLUME 82.6 FL (80.0-94.0); MEAN PLATELET VOLUME 9.1 FL (7.4-10.4); PLATELET COUNT 147 /CUMM (130-400); RBC DISTRIBUTION WIDTH 14.9 % (11.5-14.5); RED BLOOD CELL CT 3.93 /CUMM (4.70-6.10); WHITE BLOOD CELL COUNT 10.2 /CUMM (4.8-10.8)
[2016-10-08 08:30] VITALS: BP 112/80
--- NOTE | 2016-10-08 08:42 | PN- Orthopedic ---
See Addendum Subjective Subjective: Now postoperative day #3 status post right total knee replacement. His postoperative course was completed by fever and tachycardia, with subsequent diagnosis of atelectasis, requiring initiation of oxygen via nasal cannula. Right lower extremity ultrasound was negative for DVT. He did have a positive urinalysis yesterday and was started on po Bactrim. Cultures are pending. His other issues been urinary retention. A Whyte catheter was replaced yesterday and Flomax was restarted. Patient reports a known history of BPH, for which she was planning to have surgical intervention at some point. That was held in order to proceed with his knee surgery. At this time, patient's only complaint is right sided knee pain. He states that the IV Dilaudid helps, but the Percocet doesn't really. His pain is limiting progress with physical therapy. Otherwise denies headache, dizziness, chest pain, shortness of breath. All bowel movement as of yet. Objective Vital Signs and I&Os Vital Signs Date Time Temp Pulse Resp B/P Pulse O2 O2 Flow FiO2 Ox Delivery Rate 10/08 829 98.8 108 20 112/80 93 Room Air 10/08 0400 98.0 110 156/70 97 Nasal 3.0L Cannula 10/08 0040 98.7 115 20 157/76 93 10/07 1741 99.9 114 24 138/78 92 Room Air 10/07 1611 99.5 112 20 132/78 92 Room Air 10/07 1204 114 160/84 Intake & Output 10/08 1600 10/08 0800 10/08 0000 10/07 1600 10/07 0700 10/07 0000 Intake Total 021 480 8269 1600 390 Output Total 381 136 1138 725 400 Balance -50 -200 -1220 875 -10 Intake, IV 1050 1200 150 Intake, Oral 300 400 550 400 240 Number 0 0 0 Bowel Movements Output, Urine 063 661 0171 725 400 Physical Exam: General: Patient is awake and alert. No acute distress while in bed. He was observed ambulating slowly with rolling walker, with PT assistance. Cardiac: Tachycardic, but regular. Pulmonary: Inspiratory effort improving. Lungs are clear to auscultation bilaterally. Extremities: The right knee incision is clean, dry, and intact with surgical glue. The operative side is edematous, within expected limits. Strength of dorsiflexion and plantar flexion are 4 out of 5. Feet are warm bilaterally. There is no significant distal edema or calf tenderness. Results Last 48 Hours of Labs: Laboratory Tests 10/08 10/07 0716 0930 Hematology CBC w Diff NO MAN DIFF REQ WBC (4.8 - 10.8 /CUMM) 10.2 RBC (4.70 - 6.10 /CUMM) 3.93 L Hgb (14.0 - 18.0 G/DL) 11.1 L Hct (42 - 52 %) 32.5 L MCV (80.0 - 94.0 FL) 82.6 MCH (27.0 - 31.0 PG) 28.2 RDW (11.5 - 14.5 %) 14.9 H Plt Count (130 - 400 /CUMM) 147 MPV (7.4 - 10.4 FL) 9.1 Gran % (42.2 - 75.2 %) 63.7 Lymphocytes % (20.5 - 51.1 %) 18.9 L Monocytes % (1.7 - 9.3 %) 15.6 H Eosinophils % (0 - 5 %) 1.5 Basophils % (0.0 - 2.0 %) 0.3 Absolute Granulocytes (1.4 - 6.5 /CUMM) 6.5 Absolute Lymphocytes (1.2 - 3.4 /CUMM) 1.9 Absolute Monocytes (0.10 - 0.60 /CUMM) 1.6 H Absolute Eosinophils (0.0 - 0.7 /CUMM) 0.2 Absolute Basophils (0.0 - 0.2 /CUMM) 0 PUBS MCHC (33.0 - 37.0 G/DL) 34.2 Urines Urinalysis LIGHT H Urine Color (YEL,AMB,STR) YEL Urine Clarity (CLEAR) HAZY H Urine pH (5.0 - 8.0) 6.0 Ur Specific [place] (1.001 - 1.035) 1.020 Urine Protein (NEG,<30 MG/DL) TRACE H Urine Ketones (NEG) TRACE H Urine Nitrite (NEG) NEG Urine Bilirubin (NEG) NEG Urine Urobilinogen (0.1 - 1.0 EU/dl) 0.2 Ur Leukocyte Esterase (NEG) TRACE H Ur Microscopic SEDIMENT EXAMINED Urine RBC (0 - 5 /HPF) 5-10 H Urine WBC (0 - 2 /HPF) 1-3 H Ur Epithelial Cells (NONE,FEW) RARE Urine Mucus (FEW,NONE) FEW Urine Hemoglobin (NEG) MOD H Urine Glucose (N MG/DL) NEG 10/07 0620 Chemistry Sodium (137 - 145 mmol/L) 136 L Potassium (3.5 - 5.1 mmol/L) 4.0 Chloride (98 - 107 mmol/L) 95 L Carbon Dioxide (22 - 30 mmol/L) 30 Anion Gap (5 - 16) 11 BUN (9 - 20 mg/dL) 14 Creatinine (0.7 - 1.2 mg/dL) 1.1 Estimated GFR (>60 ml/min) > 60 BUN/Creatinine Ratio (7 - 25 %) 12.7 Hematology CBC w Diff NO MAN DIFF REQ WBC (4.8 - 10.8 /CUMM) 12.5 H RBC (4.70 - 6.10 /CUMM) 4.21 L Hgb (14.0 - 18.0 G/DL) 12.0 L Hct (42 - 52 %) 34.8 L MCV (80.0 - 94.0 FL) 82.5 MCH (27.0 - 31.0 PG) 28.5 RDW (11.5 - 14.5 %) 15.2 H Plt Count (130 - 400 /CUMM) 138 MPV (7.4 - 10.4 FL) 9.1 Gran % (42.2 - 75.2 %) 69.5 Lymphocytes % (20.5 - 51.1 %) 14.0 L Monocytes % (1.7 - 9.3 %) 15.9 H Eosinophils % (0 - 5 %) 0.3 Basophils % (0.0 - 2.0 %) 0.3 Absolute Granulocytes (1.4 - 6.5 /CUMM) 8.7 H Absolute Lymphocytes (1.2 - 3.4 /CUMM) 1.8 Absolute Monocytes (0.10 - 0.60 /CUMM) 2.0 H Absolute Eosinophils (0.0 - 0.7 /CUMM) 0 Absolute Basophils (0.0 - 0.2 /CUMM) 0 PUBS MCHC (33.0 - 37.0 G/DL) 34.5 Recent Imaging Studies: Right lower extremity Doppler ultrasound was negative for DVT on 10/07/2016. Assessment/Plan Assessment/Plan Patient is a 56-year-old male with past medical history significant for hyperlipidemia, depression, BPH, and a history of a resected brain tumor, who is now postoperative day #3 status post right total knee replacement. His postoperative course was complicated by either and tachycardia, with subsequent diagnosis of atelectasis and a UA suspicious for UTI. His oxygen saturations have improved and he has been weaned off of O2. Mild tachycardia persists. Currently afebrile. Plan: -DC Percocet and start oral Dilaudid for pain control. Add Valium if needed for muscle spasms. We will try to avoid IV pain meds if possible. -Hopefully tachycardia will improve with better pain control. We'll follow-up cardiology recommendations. -Continue physical therapy. Weight-bear as tolerated with rolling walker. -Keep Whyte in place due to urinary retention and history of BPH. Continue Flomax. Patient was seeing Dr. Meraz previously, but has been referred to Dr. Blue, who he has not seen yet. Consider inpatient consult or just discharge with Whyte and outpatient consult. -Continue Bactrim for suspected UTI. Day 2 today. Follow-up urine cultures, which are still pending. -Daily dry dressing changes. -Lovenox 40 daily for DVT prophylaxis. -Continue to monitor temps. -Will discuss plan with attending. Core Measures/Miscellaneous Whyte Catheter Date In: 10/07/16 Still Needed? Yes Venous Thromboembolism VTE Risk Factors: Age > 40, Surgery VTE Contraindications: No Contraindications VTE Prophylaxis Ordered Inpt: Mech & Pharm VTE Diagnosis: No VTE Type: NONE VTE Confirmed by (Test): NONE Beta Paulina Is Beta Paulina a Home Med? No Antibiotics Is Patient on Antibiotics? Yes If Yes: infection
--- NOTE | 2016-10-08 11:25 | NUR ---
Physical therapy: Patient approached for second PT session. Patient sleeping yet easily aroused. Patient declining OOB with PT at this time. Educated on importance of increasing mobility. Patient continues to want to stay in bed at this time. Will continue to follow up with patient as appropriate. Thank you.
[2016-10-08 15:56] VITALS: BP 148/82
[2016-10-08] MEDS ORDERED: CELEBREX200 M1 PO (18:40)
[2016-10-08] MEDS ORDERED: FLOMAX0.4 M1 PO (18:40)
[2016-10-08] MEDS ORDERED: LOVENOX40 MG/0.1 SC (18:40)
[2016-10-08] MEDS ORDERED: HYDROMORPHONE HC2 M1 PO (18:40)
--- NOTE | 2016-10-08 18:42 | Patient Discharge Instructions ---
Discharge Instructions General Discharge Information You were seen/treated for: RIGHT KNEE DJD/OA, TACHYCARDIA, INABILITY TO VOID You had these procedures: RIGHT TOTAL KNEE ARTHROPLASTY, LOREDO REPLACED Watch for these problems: FEVER >101, REDNESS OR DRAINAGE FROM THE WOUND, INABILITY TO BEAR WEIGHT, CHEST PAIN, SHORTNESS OF BREATH, DECREASED ABILITY TO URINATE, PALPITATIONS, SHORTNESS OF BREATH Do not soak the wound: Yes No bath, but you may shower: Yes Other wound care: YOU MAY SHOWER DESIRED. DRY DRESSING CHANGE ONCE DAILY. Diet Continue normal diet: Yes Recommended Diet: Regular Activity Full Activity/No Limits: No Activity Self Limited: Yes Pounds, do NOT lift more than: 5 Activity Limited to: Weight bear as tolerated Other activity limits: YOU MAY WEIGHT BEAR TOLERATED WITH ROLLING WALKER. PROGRESS PER PT RECOMMENDATIONS. NO STRENUOUS ACTIVITY OR HEAVY LIFTING, PUSHING OR PULLING. Acute Coronary Syndrome Inclusion Criteria At DC or during hospital stay patient has or had the following: ACS DIAGNOSIS No Discharge Core Measures Meds if any: Prescribed or Continued at Discharge Meds if any: NOT Prescribed or Continued at Discharge Congestive Heart Failure Inclusion Criteria At DC or during hospital stay patient has or had the following: CHF DIAGNOSIS No Discharge Core Measures Meds if any: Prescribed or Continued at Discharge Meds if any: NOT Prescribed or Continued at Discharge Cerebrovascular accident Inclusion Criteria At DC or during hospital stay patient has or had the following: CVA/TIA Diagnosis No Discharge Core Measures Meds if any: Prescribed or Continued at Discharge Meds if any: NOT Prescribed or Continued at Discharge Venous thromboembolism Inclusion Criteria VTE Diagnosis No VTE Type NONE VTE Confirmed by (Test) NONE Discharge Core Measures - Per Current guidelines, there needs to be overlap - treatment for the first 5 days of Warfarin therapy. - If discharged on Warfarin prior to 5 days of - overlap therapy, the patient will need to be - assessed for post discharge needs including - *Post discharge parental anticoagulation - *Warfarin and/or parental anticoagulation education - *Follow up date to check INR post discharge At least 5 days overlap therapy as Inpatient No Meds if any: Prescribed or Continued at Discharge Note: Overlap Therapy is Warfarin and Anticoagulant Meds if any: NOT Prescribed or Continued at Discharge
[2016-10-09 00:13] VITALS: BP 132/90
--- NOTE | 2016-10-09 07:08 | PN- Orthopedic ---
See Addendum Subjective Subjective: The patient was seen this morning postoperatively day #4. He reports that his pain is slightly improved from the day prior and had no other complaints the current time. He denies any chest pain, palpitations, or difficulty breathing. Objective Vital Signs and I&Os Vital Signs Date Time Temp Pulse Resp B/P Pulse O2 O2 Flow FiO2 Ox Delivery Rate 10/09 0013 98.8 111 20 132/90 92 Nasal 2.0L Cannula 10/09 0000 94 Nasal 2.0L Cannula 10/08 1556 98.6 123 20 148/82 93 Nasal 2.0L Cannula 10/08 0919 108 112/80 10/08 0830 98.8 108 20 112/80 93 Room Air Intake & Output 10/09 0000 10/08 1600 10/08 0000 10/07 1600 Intake Total 500 100 720 069 659 6134 Output Total 750 600 250 053 912 4304 Balance -250 -500 470 -50 -200 -1220 Intake, IV 1050 Intake, Oral 500 100 720 300 400 550 Number 1 0 Bowel Movements Output, Urine 750 600 250 876 400 4607 Physical Exam: Gen.: Alert and obvious distress Skin: Warm and dry Cardiac: S1-S2 regular and tachycardic Pulmonary: Bilateral breath sounds are equal and slightly decreased at bases Extremities: Bilateral lower extremities are warm without calf tenderness or significant edema. Gross motor and sensory are intact. Right knee incision is dry without signs of infection. Assessment/Plan Assessment/Plan Assessment: 56-year-old male status post right total knee arthroplasty postoperative day 4. The patient is progressing however he remains tachycardic and O2 dependent. Additionally, he has needed a Whyte catheter because of his inability to fully empty his bladder. Plan: Urology was called in consultation and recommended an additional trial of void today if the patient needs to be recatheterized he will go home with catheter and follow-up as an outpatient and continued on Flomax. Follow-up VQ scan this morning to rule out PE Follow-up morning laboratory studies Out of bed and ambulated physical therapy Daily dry dressing change GI and DVT prophylaxis Follow-up urine culture and reassess the need for antibiotic Continue current pain management Core Measures/Miscellaneous Whyte Catheter Date In: 10/07/16 Venous Thromboembolism VTE Risk Factors: Age > 40, Surgery VTE Contraindications: No Contraindications VTE Prophylaxis Ordered Inpt: Mech & Pharm VTE Diagnosis: No VTE Type: NONE VTE Confirmed by (Test): NONE Beta Paulina Is Beta Paulina a Home Med? No Antibiotics Is Patient on Antibiotics? Yes If Yes: infection
--- NOTE | 2016-10-09 07:41 | Cons- Urology ---
General Information and HPI Consulting Request Date of Consult: 10/09/16 Requested By: Orthopedics,TIKI NAJERA MD Reason for Consult: urinary retention Source of Information: patient, old records Exam Limitations: no limitations History of Present Illness: This patient underwent R TKR on 10/04/16. He has had post op urinary retention and failed 2 voiding trials. He has been started on flomax. He admits to significant lower urinary tract sx's prior to his surgery. Last BM 4 days ago. He is on pain meds. Allergies/Medications Allergies: Coded Allergies: shellfish derived (Severe, ANAPHYLAXIS 10/05/16) aspirin (Intermediate, HIVES 10/05/16) iodine (Intermediate, 10/05/16) Home Med List: Amitriptyline HCl 25 MG TABLET 1 TAB PO BID PAIN (Reported) Celecoxib (Celebrex) 200 MG CAPSULE 1 CAP PO DAILY KNEE PAIN Cholecalciferol (Vitamin D3) (Vitamin D) 1,000 UNIT TABLET 1 TAB PO DAILY SUPPLEMENT (Reported) Divalproex Sodium (Divalproex Sodium ER) 500 MG TAB.ER.24H 2 TAB PO BID SEIZURES/PAIN (Reported) Enoxaparin Sodium (Lovenox) 40 MG/0.4 ML SYRINGE 1 SYR SC DAILY DVT PROPHYLAXIS Hydromorphone HCl 2 MG TABLET 1-2 TAB PO Q4P PRN PAIN Naproxen 500 MG TABLET 1 TAB PO DAILY PAIN (Reported) Rosuvastatin Calcium (Crestor) 40 MG TABLET 1 TAB PO DAILY CHOLESTEROL ( Reported) Tamsulosin HCl (Flomax) 0.4 MG CAP.ER.24H 1 TAB PO DAILY BPH Current Medications: Current Medications Sig/Cyndi Start time Last Medication Dose Route Stop Time Status Admin Acetaminophen 650 MG Q4P PRN 10/06 1530 AC 10/06 PO 2142 Amitriptyline HCl 25 MG BID 10/050 AC 10/08 PO 2059 Atorvastatin Calcium 80 MG 1700 10/05 1700 AC 10/08 PO 1700 Celecoxib 200 MG Q24H 10/08 1999 AC 10/08 PO 2100 Diazepam 5 MG Q8P PRN 10/08 0845 AC PO Diphenhydramine HCl 25 MG Q6P PRN 10/07 0445 AC 10/07 PO 2214 Divalproex Sodium 1,000 MG BID 10/05 2199 AC 10/08 PO 2100 Docusate Sodium 100 MG DAILY 10/06 1000 AC 10/08 PO 0915 Enoxaparin Sodium 40 MG DAILY 10/06 1000 AC 10/08 SC 0916 Hydromorphone HCl 2 MG Q4P PRN 10/08 0845 AC PO Hydromorphone HCl 4 MG Q4P PRN 10/08 0845 AC 10/09 PO 0548 Hydromorphone HCl 1 MG Q3P PRN 10/05 1545 AC 10/08 IV 0616 Ketorolac 15 MG Q6-PRN PRN 10/07 1615 DC Tromethamine IV Omeprazole 40 MG DAILY AC 10/06 0700 AC 10/09 PO 0548 Ondansetron HCl 4 MG Q6P PRN 10/05 1545 AC IV Oxycodone/ 1 TAB Q4P PRN 10/05 1545 DC Acetaminophen PO Oxycodone/ 2 TAB Q4P PRN 10/05 1545 DC 10/06 Acetaminophen PO 0813 Polyethylene Glycol 17 GM DAILY 10/06 1000 AC 10/08 PO 0916 Prochlorperazine 10 MG Q6P PRN 10/05 1545 AC PO Tamsulosin HCl 0.4 MG DAILY 10/07 1045 AC 10/08 PO 0919 Trimethoprim/ 1 TAB BID 10/07 1037 AC 10/08 Sulfamethoxazole PO 2059 Past History Medical History Blood Transfusion Hx: No Neurological: seizure, TUMOR EENT: NONE Cardiovascular: hyperlipidemia Respiratory: NONE Gastrointestinal: HERNIA Hepatic: NONE Renal: KIDNEY STONES Musculoskeletal: osteoarthritis Psychiatric: NONE Endocrine: NONE Blood Disorders: NONE 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 Home Services at Home: None Smoking Status: Unknown If Ever Smoked Exam & Diagnostic Data Vital Signs and I&O Vital Signs Date Time Temp Pulse Resp B/P Pulse O2 O2 Flow FiO2 Ox Delivery Rate 10/09 0013 98.8 111 20 132/90 92 Nasal 2.0L Cannula 10/09 0000 94 Nasal 2.0L Cannula 10/08 1556 98.6 123 20 148/82 93 Nasal 2.0L Cannula 10/08 0919 108 112/80 10/08 0830 98.8 108 20 112/80 93 Room Air Intake & Output 10/09 0000 10/08 1600 10/08 0000 10/07 1600 Intake Total 500 100 720 912 943 3225 Output Total 750 600 250 343 777 9271 Balance -250 -500 470 -50 -200 -1220 Intake, IV 1050 Intake, Oral 500 100 720 300 400 550 Number 1 0 Bowel Movements Output, Urine 750 600 250 070 139 7456 No acute distress Abd: soft and non tender Genitalia: normal male with velásquez in place draining clear urine Laboratory Tests 10/09 0615 Chemistry Sodium (137 - 145 mmol/L) 138 Potassium (3.5 - 5.1 mmol/L) 4.0 Chloride (98 - 107 mmol/L) 91 L Carbon Dioxide (22 - 30 mmol/L) 35 H Anion Gap (5 - 16) 12 BUN (9 - 20 mg/dL) 20 Creatinine (0.7 - 1.2 mg/dL) 1.2 Estimated GFR (>60 ml/min) > 60 BUN/Creatinine Ratio (7 - 25 %) 16.7 Hematology CBC w Diff Pending WBC Pending RBC Pending Hgb Pending Hct Pending MCV Pending MCH Pending RDW Pending Plt Count Pending MPV Pending PUBS MCHC Pending Assessment/Plan Assessment/Plan Imp: 1. Post op urinary retention likely due to BPH, pain meds, constipation, decreased mobility Plan: 1. Continue flomax 2. Would remove velásquez today for another void trial. Check pvr by bladder scan and if more than 300 cc then re insert velásquez and he may go home with velásquez and f/u in our office for outpatient voiding trial later this week, likely 3. Keep narcotics to minimum if possible 4. Would give laxative Consult Acknowledgment - Thank you for your consult request.
[2016-10-09 07:48] LABS: ABSOLUTE BASOPHIL COUNT 0 /CUMM (0.0-0.2); ABSOLUTE EOSINOPHIL COUNT 0.2 /CUMM (0.0-0.7); ABSOLUTE GRANULOCYTE CT 4.9 /CUMM (1.4-6.5); ABSOLUTE LYMPH COUNT 1.4 /CUMM (1.2-3.4); ABSOLUTE MONOCYTE COUNT 1.4 /CUMM (0.10-0.60); BASOPHIL % 0.3 % (0.0-2.0); EOSINOPHIL % 2.8 % (0-5); GRANULOCYTE % 61.7 % (42.2-75.2); HEMATOCRIT 33.4 % (42-52); MEAN CORPUSCULAR HGB 28.2 PG (27.0-31.0); MEAN CORPUSCULAR VOLUME 82.8 FL (80.0-94.0); MEAN PLATELET VOLUME 8.8 FL (7.4-10.4); PLATELET COUNT 171 /CUMM (130-400); RED BLOOD CELL CT 4.03 /CUMM (4.70-6.10)
[2016-10-09 08:41] VITALS: BP 148/90
--- NOTE | 2016-10-09 11:19 | NUCLEAR MEDICINE REPORT ---
EXAMINATION: PULMONARY VENTILATION PERFUSION STUDY CLINICAL INFORMATION: Tachycardia, hypoxia. Patient has severe iodine and shellfish allergy, unable to have CTA. COMPARISON: No previous lung scan is available for comparison. A radiograph of the chest dated 10/06/2016 is available for comparison. TECHNIQUE: Serial gamma scintillation camera images were obtained over the posterior chest during the single breath, equilibrium rebreathing and washout of 10.3 mCi Xe 133 gas. The patient then received 4.2 mCi Tc-99m MAA intravenously and a 6-view perfusion study was performed. FINDINGS: Ventilation images: On the single breath and equilibrium images there is homogeneous distribution of gas bilaterally. During the washout phase there is no abnormal retention. There is some xenon retention in the liver, and this is evidence of hepatic steatosis. Perfusion images: No segmental perfusion defects are present. There is a nonsegmental perfusion abnormality present posteriorly in the right lower lobe. No other perfusion abnormalities are present. The chest radiograph dated 10/06/2016 shows subsegmental atelectasis at the right lung base which corresponds to the perfusion abnormality described above. IMPRESSION: Very low probability of pulmonary embolism.
[2016-10-09] MEDS ORDERED: METOPROLOL TART25 M1 PO (13:53)
[2016-10-09 16:49] VITALS: BP 138/78
--- NOTE | 2016-10-09 18:10 | NUR ---
TEMP 100.7 AT 1600, SURG PA AWARE, ORDER TO ENCOURAGE IST AND CHECK. TEMP AT 1700, 100.1. IST AND AMBULATION ENCOURAGED. TEMP AT 1800 99.3, CONTINUE TO ENCOURAGE IST.
--- NOTE | 2016-10-09 19:10 | NUR ---
BLADDER SCAN SHOWS 425 MLS URINE. PT HAS BEEN VOIDING SMALL AMOUNTS THROUGH OUT THE DAY. SURG PA ALVIN AWARE. ORDER TO REINSERT LOREDO.
--- NOTE | 2016-10-09 20:29 | NUR ---
PATIENT DEMONSTRATES ALTERED MENTAL STAUTUS. HE THOUGHT HIS WAS IN THE NEXT ROOM, THOUGHT HIS COUSIN WAS MEETING HIM DOWNSTAIRS IN THE [place], HE WAS GOING TO SIT ON HIS ROOMATES SIDE OF THE ROOM. SURG SWETA ESQUIVEL CALLED, NO ORDERS AT THIS TIME. WILL WATCH PATIENT. NIGHT NURSE NOTIFIED. BED ALARM IN PLACE.
--- NOTE | 2016-10-09 20:30 | NUR ---
PT TEMP 102.8 ORALLY. MEDICATED WITH TYLENOL 650MG PO PER ORDERS. SURGICAL PA NOTIFIED. ORDERS FOR STAT BLOOD AND URINE CX AND CXR. WILL MONITOR.
[2016-10-09 21:00] VITALS: BP 140/72
--- NOTE | 2016-10-09 22:02 | RADIOLOGY REPORT ---
EXAMINATION: XR PORTABLE CHEST CLINICAL INFORMATION: Fever postop. COMPARISON: Chest x-ray done on 10/06/2016. TECHNIQUE: Portable view of the chest was obtained. FINDINGS: Again, there is platelike atelectasis in the right lower lobe. IMPRESSION: No significant interval change.
--- NOTE | 2016-10-09 22:46 | Event Note ---
Event Note Event Note: Pt seen many times today. He had a temp earlier of 100 which went back down to 98.9 after using the incentive spirometer. His wbc was normal today at 8.8. He was ambulating without difficulty.' His bactrim was discontinued after this mornings dose because his urine cx returned no growth after two days. This afternoon he complained of some itching for which he was given benadryl - shortly thereafter he fell into a deep sleep and was difficult to arouse. I evaluated him and his vitals were wnl. He was awake and alert about 2 hours later when I evaluated him again. At that time he was desiring to go home. He failed a voiding trial late today and his velásquez was replaced and he is scheduled for follow up with urology - to go home with a velásquez. He was started on lopressor 25mg po bid per Dr Handy after his vq returned negative for PE but he was still tachycardic. At about 9 pm his temp was recorded at 102.8. I contacted Dr Castellano. Sent for gomez cultures and cxr. On exam, he is awake and alert. Oriented times three. No specific complaints. No chills, no sob, no nausea or abdominal pain. His RLE is noted to be cellulitic and edematous - nonpitting, nontender from the groin to the ankle. No drainage at the incision although it is closed with dermabond. Dr Castellano is requesting restarting bactrim ds at this time and he will be here at 6 am to culture the knee. Discussed with nursing and she will have everything needed for cultures in am. Pts vitals remained stable. temp now 99.8 after tylenol
[2016-10-10 00:42] VITALS: BP 100/70
--- NOTE | 2016-10-10 06:40 | PN- Orthopedic ---
Surgical Brief Attending Note Brief Attending Note: Resting in bed AVSS RLE - postoperative swelling as expected medial thigh erythema, minimally tender to palpation warmth throughout the right lower extremity no incisional drainage or erythema A/P - POD 5 s/p R TKA WBAT PT ID consult for cellulitis Right knee aspirated of 10 mL blood, no pus noted Will culture fluid/cell count Await ID recommendations
--- NOTE | 2016-10-10 06:47 | PN- Urology ---
Subjective Subjective: Febrile to 102.8 last PM. No distress Pt failed voiding trial yesterday with pvr of 425 cc and velásquez replaced Objective Vital Signs and I&Os Vital Signs Date Time Temp Pulse Resp B/P Pulse O2 O2 Flow FiO2 Ox Delivery Rate 10/10 0638 936 Room Air 10/10 0042 98.3 85 20 100/70 95 Nasal 2.0L Cannula 10/10 0000 95 Nasal 2.0L Cannula 10/098 99.8 10/09 2100 102.8 111 21 140/72 92 Nasal 2.0L Cannula 10/09 2052 102.8 10/09 2051 111 140/72 10/09 1717 100.1 10/09 1714 114 138/78 10/09 1649 100.7 114 20 138/78 91 Nasal 2.0L Cannula 10/09 1119 148/90 10/09 0841 97.5 107 20 148/90 92 Nasal 2.0L Cannula 10/09 08 92 Nasal 2.0L Cannula Intake & Output 10/10 0800 10/10 0000 10/09 1600 10/09 0810/09 0000 10/08 1600 Intake Total 700 500 100 720 Output Total 550 550 260 750 600 250 Balance -550 -550 440 -250 -500 470 Intake, Oral 700 500 100 720 Number 1 Bowel Movements Output, Urine 550 550 260 750 600 250 Velásquez with clear urine Previous urine C&S negative. Repeat pending Laboratory Tests 10/10 629 Other Body Source Fluid WBC Pending Fld Total RBCs Counted Pending Assessment/Plan Assessment/Plan Imp: Post op urinary retention Post op fever Plan: Continue flomax f/u urine C&S
--- NOTE | 2016-10-10 06:53 | NUR ---
KNEE ASPIRATION PERFORMED AT BEDSIDE BY DR NAJERA. SPECIMENS SENT TO LAB FOR CELL COUNT AND CULTURE. DRESSING PLACED TO KNEE BY . WILL MONITOR.
[2016-10-10 08:58] VITALS: BP 140/84
--- NOTE | 2016-10-10 13:29 | Cons- Infect Disease ---
General Information and HPI Consulting Request Date of Consult: 10/10/16 Requested By: TIKI NAJERA MD Reason for Consult: Rule out septic right knee status post knee replacement Source of Information: patient History of Present Illness: This is a 56-year-old man with a history of brain tumor, status post resection 7 years prior to admission, with chronic right knee pain secondary to degenerative joint disease admitted on October 05 for a right knee replacement, which was performed that day with Cefazolin prophylaxis. His postop course has been complicated by fevers, up to 103.4 on October 06, with initial defervescence after treatment with Bactrim, but with a recurrent fever to 102.8 on October 09 and urinary retention, requiring a Whyte catheter, which was removed and replaced after he failed several voiding trials. This morning he underwent aspiration of the right knee, with bloody fluid obtained, after which he was begun on Vancomycin and continued on the Bactrim. He reports right knee pain but offers no other complaints at this time. Allergies/Medications Allergies: Coded Allergies: shellfish derived (Severe, ANAPHYLAXIS 10/05/16) aspirin (Intermediate, HIVES 10/05/16) iodine (Intermediate, 10/05/16) Home Med List: Amitriptyline HCl 25 MG TABLET 1 TAB PO BID PAIN (Reported) Celecoxib (Celebrex) 200 MG CAPSULE 1 CAP PO DAILY KNEE PAIN Cholecalciferol (Vitamin D3) (Vitamin D) 1,000 UNIT TABLET 1 TAB PO DAILY SUPPLEMENT (Reported) Divalproex Sodium (Divalproex Sodium ER) 500 MG TAB.ER.24H 2 TAB PO BID SEIZURES/PAIN (Reported) Enoxaparin Sodium (Lovenox) 40 MG/0.4 ML SYRINGE 1 SYR SC DAILY DVT PROPHYLAXIS Hydromorphone HCl 2 MG TABLET 1-2 TAB PO Q4P PRN PAIN Metoprolol Tartrate 25 MG TABLET 1 TAB PO BID HEART RATE Naproxen 500 MG TABLET 1 TAB PO DAILY PAIN (Reported) Rosuvastatin Calcium (Crestor) 40 MG TABLET 1 TAB PO DAILY CHOLESTEROL ( Reported) Tamsulosin HCl (Flomax) 0.4 MG CAP.ER.24H 1 TAB PO DAILY BPH Past History Medical History Blood Transfusion Hx: No Neurological: seizure, BRAIN TUMOR EENT: NONE Cardiovascular: hyperlipidemia Respiratory: NONE Gastrointestinal: HERNIA Hepatic: NONE Renal: nephrolithiasis Musculoskeletal: osteoarthritis Psychiatric: NONE Endocrine: NONE Blood Disorders: NONE Cancer(s): BRAIN TUMOR 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 Home Services at Home: None Smoking Status: Unknown If Ever Smoked Review of Systems Review of Systems GI: Reports: constipation. All Other Systems: Reviewed and Negative Exam & Diagnostic Data Last 24 Hrs of Vital Signs/I&O Vital Signs Date Time Temp Pulse Resp B/P Pulse O2 O2 Flow FiO2 Ox Delivery Rate 10/10 0950 97 140/84 10/10 0949 97 140/84 10/10 0858 98.1 97 18 140/84 91 Room Air 10/10 0638 936 Room Air 10/10 0042 98.3 85 20 100/70 95 Nasal 2.0L Cannula 10/10 0000 95 Nasal 2.0L Cannula 10/09 2208 99.8 10/09 2100 102.8 111 21 140/72 92 Nasal 2.0L Cannula 10/09 2053 102.8 10/09 2052 111 140/72 10/09 1717 100.1 10/09 1714 114 138/78 10/09 1649 100.7 114 20 138/78 91 Nasal 2.0L Cannula Intake & Output 10/10 1600 10/10 0800 10/10 0000 Intake Total Output Total 550 550 Balance -550 -550 Output, Urine 550 550 Physical Exam Other Physical Findings: He is awake and alert in no acute distress. MAXIMUM TEMPERATURE 102.8. Skin reveals no rash. HEENT exam is negative. Neck is supple with no adenopathy. Lungs are clear. Heart regular rhythm with no murmur. Abdomen is soft, mildly tender on palpation of the right upper quadrant and right lower quadrant, with no guarding or rebound, with positive bowel sounds. Back no CVA tenderness. Extremities right knee swelling, warmth and erythema, tender to palpation, with limited range of motion; no drainage at present. Neuro is without focality. Whyte catheter is in place. Last 24 Hours of Lab Results: Laboratory Tests 10/10 0630 Hematology Lymphocytes (%) 2 % Normal PMNs (%) 94 Misc Hematology Test (%) 4 Other Body Source Fluid WBC (0 - 5 /CUMM) 05332 H Fld Total RBCs Counted (0 /CUMM) [id number] H Last 24 Hours of Jesus Results: Blood cultures October 06 negative Blood cultures October 09 negative Urine culture October 07 2 negative Urine culture October 09 negative Right knee synovial fluid culture October 10 pending, with gram stain revealing many white blood cells and no organisms Diagnostic Data Recent Imaging Findings: Chest x-ray October 09, personally reviewed, reveals platelike atelectasis in the right lower lobe VQ scan October 09 very low probability of pulmonary embolism Doppler right leg October 09 negative Assessment/Plan Assessment/Plan Impression: This is a 56-year-old man with chronic right knee pain secondary to degenerative joint disease admitted on October 05 for a right knee replacement, with postop course complicated by fevers and urinary retention, status post right knee joint aspiration this morning, revealing bloody fluid, with a large number of white blood cells. I am concerned about an infection in the right knee joint and, if infection is confirmed by positive cultures, he will need debridement of the joint. If he does have infection he should not require removal of the prosthesis as long as the infection is due to an organism that is susceptible to oral antibiotics. The recent treatment with Bactrim may affect the OR cultures and will need to await these results. In the interim he can be covered empirically for gram-positives, including MRSA and coag-negative Staph, and gram -negatives, including Pseudomonas. Suggestion: 1. Follow-up the right knee synovial fluid culture 2. Discontinue Bactrim 3. Begin Ceftazidime 2 g IV every 8 hours pending above 4. Continue Vancomycin but decrease to 1 g IV every 12 hours pending above Consult Acknowledgment - Thank you for your consult request.
[2016-10-10 14:00] VITALS: BP 134/70
[2016-10-10 16:20] VITALS: BP 140/86
[2016-10-10 23:40] VITALS: BP 130/86
--- NOTE | 2016-10-11 07:10 | PN- Orthopedic ---
Subjective Subjective: Awake, alert No complaints overnight Objective Vital Signs and I&Os Vital Signs Date Time Temp Pulse Resp B/P Pulse O2 O2 Flow FiO2 Ox Delivery Rate 10/11 0713 97.8 98 20 128/86 97 Nasal 3.0L Cannula 10/11 0200 98.9 10/11 0000 Nasal 3.0L Cannula 10/10 2340 100.3 90 20 130/86 96 Nasal 3.0L Cannula 10/10 2135 132/80 10/10 2000 99.4 20 93 Nasal 3.0L Cannula 10/10 1806 99.3 21 92 Nasal 3.0L Cannula 10/10 1620 100.1 101 21 140/86 90 Nasal 2.0L Cannula 10/10 1400 97.8 80 18 134/70 92 Room Air 10/10 0950 97 140/84 10/10 0949 97 140/84 10/10 0858 98.1 97 18 140/84 91 Room Air Intake & Output 10/11 0800 10/11 0000 10/10 1600 10/10 0800 10/10 0000 10/09 1600 Intake Total 150 100 850 700 Output Total 450 550 450 550 550 260 Balance -300 -450 400 -550 -550 440 Intake, IV 300 Intake, Oral 150 100 550 700 Number 1 0 Bowel Movements Output, Urine 450 550 450 550 550 260 Patient 216 lb Weight Physical Exam: tmax 100.3 HR 90's General: alert and oriented times three Chest:clear anteriorly bilaterally, RRR Abd: soft, good bs Ext: RLE still with 2+edema, warm, no cellulitis this morning, nontender, no drainage from wound Assessment/Plan Assessment/Plan 56 yo male s/p R TKR with ?septic joint await synovial fluid cultures ID recommendations - vanc/fortaz - continue for now tachy improved on lopressor - continue for now blood/urine cx from 10/09 negative so far - continue to follow wbat lovenox Core Measures/Miscellaneous Whyte Catheter Date In: 10/07/16 Venous Thromboembolism VTE Risk Factors: Age > 40, Surgery VTE Contraindications: No Contraindications VTE Prophylaxis Ordered Inpt: Mech & Pharm VTE Diagnosis: No VTE Type: NONE VTE Confirmed by (Test): NONE Beta Paulina Is Beta Paulina a Home Med? No Antibiotics Is Patient on Antibiotics? Yes If Yes: infection
[2016-10-11 07:13] VITALS: BP 128/86
--- NOTE | 2016-10-11 07:25 | PN- Urology ---
Subjective Subjective: Pt sleeping Objective Vital Signs and I&Os Vital Signs Date Time Temp Pulse Resp B/P Pulse O2 O2 Flow FiO2 Ox Delivery Rate 10/11 0713 97.8 98 20 128/86 97 Nasal 3.0L Cannula 10/11 0200 98.9 10/11 0000 Nasal 3.0L Cannula 10/10 2340 100.3 90 20 130/86 96 Nasal 3.0L Cannula 10/10 2135 132/80 10/10 2000 99.4 20 93 Nasal 3.0L Cannula 10/10 1806 99.3 21 92 Nasal 3.0L Cannula 10/10 1620 100.1 101 21 140/86 90 Nasal 2.0L Cannula 10/10 1400 97.8 80 18 134/70 92 Room Air 10/10 0950 97 140/84 10/10 0949 97 140/84 10/10 0858 98.1 97 18 140/84 91 Room Air Intake & Output 10/11 0800 10/11 0000 10/10 1600 10/10 0800 10/10 0000 10/09 1600 Intake Total 150 100 850 700 Output Total 550 450 550 550 260 Balance 150 -450 400 -550 -550 440 Intake, IV 300 Intake, Oral 150 100 550 700 Number 1 0 Bowel Movements Output, Urine 550 450 550 550 260 Patient 216 lb Weight Velásquez in place. Draining clear urine Laboratory Tests 10/11 0635 Chemistry Sodium Pending Potassium Pending Chloride Pending Carbon Dioxide Pending Anion Gap Pending BUN Pending Creatinine Pending BUN/Creatinine Ratio Pending Hematology CBC w Diff Pending WBC Pending RBC Pending Hgb Pending Hct Pending MCV Pending MCH Pending RDW Pending Plt Count Pending MPV Pending PUBS MCHC Pending Assessment/Plan Assessment/Plan Imp: Post op urinary retention Plan: continue tamsulosin f/u cultures abx per ID Eventual discharge with velásquez for outpatient voiding trial
[2016-10-11 08:02] LABS: ABSOLUTE BASOPHIL COUNT 0 /CUMM (0.0-0.2); ABSOLUTE EOSINOPHIL COUNT 0.3 /CUMM (0.0-0.7); ABSOLUTE GRANULOCYTE CT 6.2 /CUMM (1.4-6.5); ABSOLUTE LYMPH COUNT 1.6 /CUMM (1.2-3.4); ABSOLUTE MONOCYTE COUNT 1.4 /CUMM (0.10-0.60); BASOPHIL % 0.4 % (0.0-2.0); EOSINOPHIL % 3.1 % (0-5); GRANULOCYTE % 65.5 % (42.2-75.2); HEMATOCRIT 31.6 % (42-52); MEAN CORPUSCULAR HGB 27.8 PG (27.0-31.0); MEAN CORPUSCULAR HGB CONC 33.8 G/DL (33.0-37.0); MEAN CORPUSCULAR VOLUME 82.4 FL (80.0-94.0); MEAN PLATELET VOLUME 8.1 FL (7.4-10.4); PLATELET COUNT 246 /CUMM (130-400); RBC DISTRIBUTION WIDTH 14.9 % (11.5-14.5); RED BLOOD CELL CT 3.83 /CUMM (4.70-6.10); WHITE BLOOD CELL COUNT 9.5 /CUMM (4.8-10.8)
--- NOTE | 2016-10-11 12:25 | PN- Infect Dx ---
Subjective Subjective: MAXIMUM TEMPERATURE 100.3. He feels improved with decreased right knee pain. Objective Last 24 Hrs of Vital Signs/I&O Vital Signs Date Time Temp Pulse Resp B/P Pulse O2 O2 Flow FiO2 Ox Delivery Rate 10/11 09 98 128/86 10/11 0929 98 128/86 10/11 0713 97.8 98 20 128/86 97 Nasal 3.0L Cannula 10/11 0200 98.9 10/11 0000 Nasal 3.0L Cannula 10/10 2340 100.3 90 20 130/86 96 Nasal 3.0L Cannula 10/10 2135 132/80 10/10 2000 99.4 20 93 Nasal 3.0L Cannula 10/10 1806 99.3 21 92 Nasal 3.0L Cannula 10/10 1620 100.1 101 21 140/86 90 Nasal 2.0L Cannula 10/10 1400 97.8 80 18 134/70 92 Room Air Intake & Output 10/11 1600 10/11 0800 10/11 0000 Intake Total 150 100 Output Total 450 550 Balance -300 -450 Intake, Oral 150 100 Number 1 Bowel Movements Output, Urine 450 550 Patient 216 lb Weight Physical Exam Other Physical Findings: He appears comfortable in no acute distress Extremities slight decreased swelling and warmth of the right knee, mildly tender on palpation, with erythema over the knee and extending medially up the thigh, associated with edema Whyte catheter remains in place Results Last 24 Hours of Lab Results: Laboratory Tests 10/11 0635 Chemistry Sodium (137 - 145 mmol/L) 137 Potassium (3.5 - 5.1 mmol/L) 4.4 Chloride (98 - 107 mmol/L) 91 L Carbon Dioxide (22 - 30 mmol/L) 33 H Anion Gap (5 - 16) 12 BUN (9 - 20 mg/dL) 25 H Creatinine (0.7 - 1.2 mg/dL) 1.2 Estimated GFR (>60 ml/min) > 60 BUN/Creatinine Ratio (7 - 25 %) 20.8 Hematology CBC w Diff NO MAN DIFF REQ WBC (4.8 - 10.8 /CUMM) 9.5 RBC (4.70 - 6.10 /CUMM) 3.83 L Hgb (14.0 - 18.0 G/DL) 10.7 L Hct (42 - 52 %) 31.6 L MCV (80.0 - 94.0 FL) 82.4 MCH (27.0 - 31.0 PG) 27.8 RDW (11.5 - 14.5 %) 14.9 H Plt Count (130 - 400 /CUMM) 246 MPV (7.4 - 10.4 FL) 8.1 Gran % (42.2 - 75.2 %) 65.5 Lymphocytes % (20.5 - 51.1 %) 16.7 L Monocytes % (1.7 - 9.3 %) 14.3 H Eosinophils % (0 - 5 %) 3.1 Basophils % (0.0 - 2.0 %) 0.4 Absolute Granulocytes (1.4 - 6.5 /CUMM) 6.2 Absolute Lymphocytes (1.2 - 3.4 /CUMM) 1.6 Absolute Monocytes (0.10 - 0.60 /CUMM) 1.4 H Absolute Eosinophils (0.0 - 0.7 /CUMM) 0.3 Absolute Basophils (0.0 - 0.2 /CUMM) 0 PUBS MCHC (33.0 - 37.0 G/DL) 33.8 Last 24 Hours of Jesus Results: Right knee synovial fluid culture October 10 negative Blood cultures 2 October 10 negative Urine culture October 09 negative Assessment/Plan Impression: Low-grade fevers persist with white blood cell count remaining normal on empiric treatment with Vancomycin and Ceftazidime for possible septic right knee joint/ prosthesis now 6 days status post right knee replacement, with culture of the synovial fluid so far negative. He was on antibiotics for several days prior to the aspiration, which may delay or negate the culture. Suggestion: 1. Follow-up the right knee synovial fluid culture 2. Continue Vancomycin and Ceftazidime pending above
[2016-10-11 16:13] VITALS: BP 132/82
--- NOTE | 2016-10-11 19:45 | NUR ---
NURSING NOTE: PATIENT ARRIVED ON THE FLOOR @ 1745 FROM [place] B. A&O X 3 WITH NO C/O PAIN OR DISCOMFORT. VS WNL WITH SPO2 97% ON RA. IV # 22 RF WITH D5%-NS @ 75ML/HR. S/P LT BKA WHTH DRSG CDI AND IMMOBILIZER IN PLACE. PATIENT HAS A RT TMA. RT BKA IS ELEVATED ON A PILLOW. REPORT TO NIGHT NURSE.
--- NOTE | 2016-10-11 19:51 | NUR ---
PT A&OX3, 3L NC, PT AMBULATED TO BATHROOM X1 RW +BM, LOREDO RENEWED TODAY 10/11/16 @1929, IV #22 LF 10/10/16 HL - TUBING CHANGED, SURGICAL SITE OPEN TO AIR- CLEAN & INTACT, SMALL DSG ON RLE R/T ASPIRATION CDI. CALL LIGHT PLACED WITHIN REACH, OFFERED NO COMPLALINTS AT THIS TIME.
[2016-10-11 23:45] VITALS: BP 130/78
--- NOTE | 2016-10-12 07:20 | PN- Orthopedic ---
Surgical Brief Attending Note Brief Attending Note: Resting comfortably, anxious to go home AVSS RLE - incision c/d/i no drainage mild medial thigh erythema improved A/P - POD 7 s/p R TKA WBAT Home PT until velásquez out with voiding trial at urology office D/C on Lovenox Follow up next Sunday Would put on PO antibiotics to cover for cellulitis as outpatient with close follow up as there is no growth on aspirate Will await final ID recommendations for PO antibiotics.
[2016-10-12 07:49] VITALS: BP 120/68
[2016-10-12 09:05] LABS: ABSOLUTE BASOPHIL COUNT 0 /CUMM (0.0-0.2); ABSOLUTE EOSINOPHIL COUNT 0.2 /CUMM (0.0-0.7); ABSOLUTE GRANULOCYTE CT 7.8 /CUMM (1.4-6.5); ABSOLUTE LYMPH COUNT 1.2 /CUMM (1.2-3.4); ABSOLUTE MONOCYTE COUNT 1.5 /CUMM (0.10-0.60); BASOPHIL % 0.1 % (0.0-2.0); EOSINOPHIL % 1.9 % (0-5); HEMATOCRIT 33.7 % (42-52); MEAN CORPUSCULAR HGB 27.8 PG (27.0-31.0); MEAN CORPUSCULAR HGB CONC 33.9 G/DL (33.0-37.0); MEAN CORPUSCULAR VOLUME 82.1 FL (80.0-94.0); MEAN PLATELET VOLUME 7.9 FL (7.4-10.4); PLATELET COUNT 295 /CUMM (130-400); RBC DISTRIBUTION WIDTH 14.9 % (11.5-14.5); RED BLOOD CELL CT 4.11 /CUMM (4.70-6.10); WHITE BLOOD CELL COUNT 10.7 /CUMM (4.8-10.8)
--- NOTE | 2016-10-12 11:13 | PN- Infect Dx ---
Subjective Subjective: Afebrile. He feels well with no complaints of pain. Objective Last 24 Hrs of Vital Signs/I&O Vital Signs Date Time Temp Pulse Resp B/P Pulse O2 O2 Flow FiO2 Ox Delivery Rate 10/12 1036 84 120/68 10/12 1036 84 120/68 10/12 0749 98.2 84 20 120/68 92 Room Air 10/12 0000 93 Nasal 3.0L Cannula 10/11 2345 98.0 82 18 130/78 93 Room Air 10/11 2145 96 123/73 10/11 1938 Nasal 3.0L Cannula 10/11 1613 99.2 95 20 132/82 94 Nasal 2.0L Cannula Intake & Output 10/12 1600 10/12 0800 10/12 0000 Intake Total 300 Output Total 600 350 Balance -600 -50 Intake, IV 100 Intake, Oral 200 Number 1 1 Bowel Movements Output, Urine 600 350 Physical Exam Other Physical Findings: He appears comfortable in no acute distress Extremities right knee swelling and warmth, with decreased erythema, minimally tender on palpation with increased range of motion; incision is clean, with no drainage Results Last 24 Hours of Lab Results: Laboratory Tests 10/12 0735 Chemistry Sodium (137 - 145 mmol/L) 137 Potassium (3.5 - 5.1 mmol/L) 4.7 Chloride (98 - 107 mmol/L) 94 L Carbon Dioxide (22 - 30 mmol/L) 31 H Anion Gap (5 - 16) 11 BUN (9 - 20 mg/dL) 22 H Creatinine (0.7 - 1.2 mg/dL) 1.1 Estimated GFR (>60 ml/min) > 60 BUN/Creatinine Ratio (7 - 25 %) 20.0 Hematology CBC w Diff NO MAN DIFF REQ WBC (4.8 - 10.8 /CUMM) 10.7 RBC (4.70 - 6.10 /CUMM) 4.11 L Hgb (14.0 - 18.0 G/DL) 11.4 L Hct (42 - 52 %) 33.7 L MCV (80.0 - 94.0 FL) 82.1 MCH (27.0 - 31.0 PG) 27.8 RDW (11.5 - 14.5 %) 14.9 H Plt Count (130 - 400 /CUMM) 295 MPV (7.4 - 10.4 FL) 7.9 Gran % (42.2 - 75.2 %) 73.0 Lymphocytes % (20.5 - 51.1 %) 11.3 L Monocytes % (1.7 - 9.3 %) 13.7 H Eosinophils % (0 - 5 %) 1.9 Basophils % (0.0 - 2.0 %) 0.1 Absolute Granulocytes (1.4 - 6.5 /CUMM) 7.8 H Absolute Lymphocytes (1.2 - 3.4 /CUMM) 1.2 Absolute Monocytes (0.10 - 0.60 /CUMM) 1.5 H Absolute Eosinophils (0.0 - 0.7 /CUMM) 0.2 Absolute Basophils (0.0 - 0.2 /CUMM) 0 PUBS MCHC (33.0 - 37.0 G/DL) 33.9 Last 24 Hours of Jesus Results: Blood cultures 2 October 09 negative Right knee synovial fluid culture October 10 negative Assessment/Plan Impression: Overall improved with temperatures normal although white blood cell count has increased slightly, on empiric treatment with Vancomycin and Ceftazidime for possible septic right knee joint/prosthesis now 1 week status post right knee replacement, with culture of the synovial fluid remaining negative. Unfortunately he was on antibiotics for several days prior to the aspiration, which may affect the culture, and am still concerned about the possibility of an infection within the joint, given the markedly elevated white blood cell count in the synovial fluid. Suggestion: 1. Await the final synovial fluid culture results 2. Continue Vancomycin and Ceftazidime pending above
--- NOTE | 2016-10-12 14:32 | NUR ---
LATE ENTRY: PT REFUSED AMITRIPTYLINE AND MIRALAX THIS AM, ALVIN SOL AWARE. PA ALSO MADE AWARE THAT PT REFUSING ALPS AT THIS TIME. HOWEVER, PT RECEIVING LOVENOX FOR DVT PROPHYLAXIS.
[2016-10-12] MEDS ORDERED: BACTRIM DS TAB1 EACH PO (15:23)
[2016-10-12 15:49] VITALS: BP 122/72
--- NOTE | 2016-10-12 17:22 | PN- Orthopedic ---
Surgical Brief Attending Note Brief Attending Note: A discussion was held with Emiliano Olvera MD from infectious disease. We will keep him 1 more day to ensure that the final cultures are negative. We will send him out on by mouth antibiotics to cover for cellulitis. He will be followed closely as an outpatient.
[2016-10-12 23:53] VITALS: BP 130/90
[2016-10-13 08:10] LABS: ABSOLUTE BASOPHIL COUNT 0 /CUMM (0.0-0.2); ABSOLUTE EOSINOPHIL COUNT 0.3 /CUMM (0.0-0.7); ABSOLUTE GRANULOCYTE CT 6.5 /CUMM (1.4-6.5); ABSOLUTE LYMPH COUNT 2.4 /CUMM (1.2-3.4); ABSOLUTE MONOCYTE COUNT 1.6 /CUMM (0.10-0.60); BASOPHIL % 0.4 % (0.0-2.0); GRANULOCYTE % 59.6 % (42.2-75.2); HEMATOCRIT 33.4 % (42-52); MEAN CORPUSCULAR HGB 28.1 PG (27.0-31.0); MEAN CORPUSCULAR HGB CONC 34.1 G/DL (33.0-37.0); MEAN CORPUSCULAR VOLUME 82.3 FL (80.0-94.0); MEAN PLATELET VOLUME 7.7 FL (7.4-10.4); PLATELET COUNT 326 /CUMM (130-400); RBC DISTRIBUTION WIDTH 14.7 % (11.5-14.5); RED BLOOD CELL CT 4.05 /CUMM (4.70-6.10); WHITE BLOOD CELL COUNT 10.9 /CUMM (4.8-10.8)
--- NOTE | 2016-10-13 08:49 | PN- Orthopedic ---
Subjective Subjective: No complaints. Reports knee pain improves with dilaudid. Ambulating with rolling walker assistance without difficulty. No dizziness. No shortness of breath. No chest pains. Lovenox teaching done yesterday. Tolerating diet. No nausea. Passing flatus and +bms. Anticipates discharge to home today with velásquez catheter with plan to do velásquez removal and voiding trial within the week following discharge at the discretion of . Objective Vital Signs and I&Os Vital Signs Date Time Temp Pulse Resp B/P Pulse O2 O2 Flow FiO2 Ox Delivery Rate 10/12 2353 99.0 97 20 130/90 92 Room Air 10/12 2102 88 128/68 10/12 1549 98.6 91 20 122/72 94 Room Air 10/12 1036 84 120/68 10/12 1036 84 120/68 Intake & Output 10/13 1600 10/13 0800 10/13 0000 10/12 1600 10/12 0800 10/12 0000 Intake Total 120 510 875 300 Output Total 250 350 400 600 350 Balance -130 160 475 -600 -50 Intake, IV 270 275 100 Intake, Oral 120 240 600 200 Number 0 1 1 1 Bowel Movements Output, Urine 250 350 400 600 350 Physical Exam: General - alert & oriented x 3. comfortable. no acute distress. Lungs - clear bilaterally. no w/r/r. Cardiac - s1s2. reg. Abdomen - soft. nontender. - velásquez draining clear, yellow urine. Extremities - warm bilaterally. incision c/d/i, approximated with skin glue. no drainage. mild medial thigh erythema resolved. calves soft and nontender b/l. nvi. Assessment/Plan Assessment/Plan This 56 year old male is now POD#8 s/p R TKR, with improving cellulitis, velásquez catheter in place due to urinary retention tolerating diet oob with rolling walker, wbat lovenox teaching done lovenox 40 mg daily - dvt ppx home PT arranged to be discharged with velásquez, with plans for voiding trial within one week after discharge with d/c home with bactrim DS to cover for cellulitis per f/u final ID recommendations will d/w Core Measures/Miscellaneous Velásquez Catheter Date In: 10/07/16 Venous Thromboembolism VTE Risk Factors: Age > 40, Surgery VTE Contraindications: No Contraindications VTE Prophylaxis Ordered Inpt: Mech & Pharm VTE Diagnosis: No VTE Type: NONE VTE Confirmed by (Test): NONE Beta Paulina Is Beta Paulina a Home Med? No Antibiotics Is Patient on Antibiotics? Yes If Yes: infection
[2016-10-13 09:07] VITALS: BP 116/80
[2016-10-13] MEDS ORDERED: AUGMENTIN 875-1 EACH PO (11:59)
--- NOTE | 2016-10-13 12:48 | PN- Infect Dx ---
Subjective Subjective: Afebrile without complaints Objective Last 24 Hrs of Vital Signs/I&O Vital Signs Date Time Temp Pulse Resp B/P Pulse O2 O2 Flow FiO2 Ox Delivery Rate 10/13 0907 97.8 82 20 116/80 93 10/12 2353 99.0 97 20 130/90 92 Room Air 10/12 2102 88 128/68 10/12 1549 98.6 91 20 122/72 94 Room Air Intake & Output 10/13 1600 10/13 0800 10/13 0000 Intake Total 120 510 Output Total 250 350 Balance -130 160 Intake, IV 270 Intake, Oral 120 240 Number 0 Bowel Movements Output, Urine 250 350 Physical Exam Other Physical Findings: He appears comfortable in no acute distress Extremities right knee swelling and warmth persist, though nontender on palpation with decreased erythema of the right leg; incision is clean with no erythema or drainage Results Last 24 Hours of Lab Results: Laboratory Tests 10/13 0647 Chemistry Sodium (137 - 145 mmol/L) 138 Potassium (3.5 - 5.1 mmol/L) 3.9 Chloride (98 - 107 mmol/L) 95 L Carbon Dioxide (22 - 30 mmol/L) 30 Anion Gap (5 - 16) 13 BUN (9 - 20 mg/dL) 23 H Creatinine (0.7 - 1.2 mg/dL) 1.1 Estimated GFR (>60 ml/min) > 60 BUN/Creatinine Ratio (7 - 25 %) 20.9 Hematology CBC w Diff NO MAN DIFF REQ WBC (4.8 - 10.8 /CUMM) 10.9 H RBC (4.70 - 6.10 /CUMM) 4.05 L Hgb (14.0 - 18.0 G/DL) 11.4 L Hct (42 - 52 %) 33.4 L MCV (80.0 - 94.0 FL) 82.3 MCH (27.0 - 31.0 PG) 28.1 RDW (11.5 - 14.5 %) 14.7 H Plt Count (130 - 400 /CUMM) 326 MPV (7.4 - 10.4 FL) 7.7 Gran % (42.2 - 75.2 %) 59.6 Lymphocytes % (20.5 - 51.1 %) 22.2 Monocytes % (1.7 - 9.3 %) 14.8 H Eosinophils % (0 - 5 %) 3.0 Basophils % (0.0 - 2.0 %) 0.4 Absolute Granulocytes (1.4 - 6.5 /CUMM) 6.5 Absolute Lymphocytes (1.2 - 3.4 /CUMM) 2.4 Absolute Monocytes (0.10 - 0.60 /CUMM) 1.6 H Absolute Eosinophils (0.0 - 0.7 /CUMM) 0.3 Absolute Basophils (0.0 - 0.2 /CUMM) 0 PUBS MCHC (33.0 - 37.0 G/DL) 34.1 Last 24 Hours of Jesus Results: Blood cultures 2 October 09 remain negative Right knee aspirate culture October 10 negative Assessment/Plan Impression: Overall improved with temperatures normal though white blood cell count continues to increase slightly, of unclear significance, with final culture of the right knee joint aspiration negative. He remains on empiric treatment with Vancomycin and Ceftazidime, but, with the negative culture, cannot commit to treatment for a septic joint. He may have an element of cellulitis, but this would not explain the high white blood cells in his knee fluid and am still concerned about the possibility of a septic joint that was masked by the antibiotics he was on for several days prior to the aspiration. Suggestion: 1. Discontinue Vancomycin and Ceftazidime 2. If plan to discharge on antibiotics, would limit this to a short course, for example 4 more days of treatment, perhaps with Augmentin 875 mg po every 12 hours, with close monitoring off antibiotics for recurrence of symptoms that would suggest the need for a repeat aspiration.
--- NOTE | 2016-10-13 14:33 | NUR ---
NURSING NOTE: PATIENT LEFT FLOOR VIA WC WITH SP AND DISTRIBUTION FOR DISCHARGE HOME. PATIENT A/OX3, PAIN MEDSD GIVEN AT DISCHARGE. IV DISCONTINUED. PRESCRIPTIONS AND RW AND ALL BELONGINGS WITH PATIENT.
== END 2016-10-13 14:30 | disposition home health service (06) | DRG 470 ==
LOC: SDA 02:30 → 2NB 02:30 → ENPENDDIS 02:30 → 2NB 15:26
PROVIDERS: Nurse Practitioner; Physician Assistant; Physician Assistant Surgical; ADMIT Orthopaedic Surgery
PROC: 0SRC0J9 Replacement of Right Knee Joint with Synthetic Substitute, Cemented, Open Approach (ICD-10-PCS; principal; 2016-10-05)
PROC: 0S9C3ZX Drainage of Right Knee Joint, Percutaneous Approach, Diagnostic (ICD-10-PCS; 2016-10-10)
DX: M17.11 Unilateral primary osteoarthritis, right knee (principal); R56.9 Unspecified convulsions; L03.115 Cellulitis of right lower limb; E66.9 Obesity, unspecified; Z68.31 Body mass index [BMI] 31.0-31.9, adult; R00.0 Tachycardia, unspecified; E78.5 Hyperlipidemia, unspecified; R33.8 Other retention of urine; N40.1 Benign prostatic hyperplasia with lower urinary tract symptoms; L76.82 Other postprocedural complications of skin and subcutaneous tissue; Y83.8 Other surgical procedures as the cause of abnormal reaction of the patient, or of later complication, without mention of misadventure at the time of the procedure
CPT/HCPCS: 2NBSP; 87075; 36415; 78582; 81001; 82436; 87040; 87086; 88305; 93005; 93010; 97001-GP; 97110-GO; 97116-GO; 97161-GP; 97530-GO; A9540; A9558; C1713; J0131; J0690; J0713; J1170; J1200; J1650; J1885; J2405; J2795; J3370; J7040; J7042; J7060

== ENCOUNTER 2018-01-20 11:46 | Emergency (ER) | payer MEDICARE ==
[~2018-01-20] VITALS: Ht 175.3 cm; Wt 95.3 kg
[~2018-01-20 11:46] MED LIST changes: +AUGMENTIN 875-1 EACH PO; +BACTRIM DS TAB1 EACH PO; +CELEBREX200 M1 PO; +FLOMAX0.4 M1 PO; +HYDROMORPHONE HC2 M1 PO; +KEFLEX500 M1 PO; +LOVENOX40 MG/0.1 SC; +METOPROLOL TART25 M1 PO; +MOBIC15 M1 PO
--- NOTE | 2018-01-20 13:01 | RADIOLOGY REPORT ---
EXAMINATION: XR CHEST CLINICAL INFORMATION: Productive cough. Right-sided rib pain. COMPARISON: Chest radiograph 08/06/2017. TECHNIQUE: 2 views of the chest were obtained. FINDINGS: There is platelike atelectasis within the right lung. No overt consolidative disease or effusion. No pneumothorax. The cardiac silhouette and upper mediastinal contours are normal. No acute osseous finding. IMPRESSION: Platelike atelectasis right lung. No overt consolidative disease or effusion.
--- NOTE | 2018-01-20 14:25 | ED GENERAL ADULT ---
History of Present Illness General Chief Complaint: Sore Throat, Dental Pain Stated Complaint: SORE THROAT COUGH ? FEVER Source: patient Exam Limitations: no limitations Vital Signs & Intake/Output Vital Signs & Intake/Output Vital Signs Date Time Temp Pulse Resp B/P B/P Pulse O2 O2 Flow FiO2 Mean Ox Delivery Rate 01/20 1548 99.4 103 18 135/86 95 Room Air 01/20 1436 93 01/20 1426 99.1 108 18 124/79 95 Room Air 01/20 1425 Room Air 01/20 1211 99.8 116 18 126/85 91 Room Air Allergies Coded Allergies: shellfish derived (Severe, ANAPHYLAXIS 10/05/16) aspirin (Intermediate, HIVES 10/05/16) iodine (Intermediate, 10/05/16) Reconcile Medications Amitriptyline HCl 25 MG TABLET 1 TAB PO BID PAIN (Reported) Amoxicillin/Potassium Clav (Augmentin 875-125 Tablet) 875 MG-125 MG TABLET 1 TAB PO BID cellulitis take with food. Celecoxib (Celebrex) 200 MG CAPSULE 1 CAP PO DAILY KNEE PAIN Cephalexin (Keflex) 500 MG CAPSULE 1 CAP PO Q6H cellulitis Cholecalciferol (Vitamin D3) (Vitamin D) 1,000 UNIT TABLET 1 TAB PO DAILY SUPPLEMENT (Reported) Codeine Phosphate/Guaifenesi (Cheratussin AC Syrup) 10 MG-100 MG/5 ML LIQUID 5 -10 ML PO Q6P PRN COUGH Divalproex Sodium (Divalproex Sodium ER) 500 MG TAB.ER.24H 2 TAB PO BID SEIZURES/PAIN (Reported) Enoxaparin Sodium (Lovenox) 40 MG/0.4 ML SYRINGE 1 SYR SC DAILY DVT PROPHYLAXIS Hydromorphone HCl 2 MG TABLET 1-2 TAB PO Q4P PRN PAIN Levofloxacin (Levaquin) 750 MG TABLET 1 TAB PO DAILY pna Meloxicam (Mobic) 15 MG TABLET 1 TAB PO DAILY PRN pain Metoprolol Tartrate 25 MG TABLET 1 TAB PO BID HEART RATE Oxycodone HCl/Acetaminophen (Percocet 5-325 MG Tablet) 5 MG-325 MG TABLET 1 TAB PO TID PRN pain Rosuvastatin Calcium (Crestor) 40 MG TABLET 1 TAB PO DAILY CHOLESTEROL ( Reported) Sulfamethoxazole/Trimethoprim (Bactrim Ds Tablet) 800 MG-160 MG TABLET 1 TAB PO BID cellulitis Tamsulosin HCl (Flomax) 0.4 MG CAP.ER.24H 1 TAB PO DAILY BPH Triage Note: 57M WITH LOWGRADE TEMP, SORE THROAT X2-3 DAYS AND DEVELOPMENT OF YELLOW PRODUCTIVE COUGH X2 DAYS WITH ASSOCIATED RIGHT RIB AREA PAIN. O2 SAT 91-92% ON ROOM AIR. FLU AND THROAT SWABS SENT FROM [facility]. Triage Nurses Notes Reviewed? yes Onset: Abrupt Duration: day(s):, constant Timing: recent history Injury Environment: home No Modifying Factors: none HPI: 57-year-old male comes into the emergency room for further evaluation of sore throat and cough. Patient has been having some right sided rib pain with coughing as well as when the cough is not present. Denies any fever. He reports her some blood in his sputum when he was coughing but is typically yellow. Denies any vomiting. Shortness of breath. Comes in for further evaluation. (Hal Hurtado) Past History Travel History Traveled to [place] past 21 day No Medical History Any Pertinent Medical History? see below for history Neurological: seizure, BRAIN TUMOR EENT: NONE Cardiovascular: hyperlipidemia Respiratory: NONE Gastrointestinal: HERNIA Hepatic: NONE Renal: nephrolithiasis Musculoskeletal: osteoarthritis Psychiatric: NONE Endocrine: NONE Blood Disorders: NONE Cancer(s): BRAIN TUMOR MEDICAL OFFICE ASSISTANT/Reproductive: NONE History of MRSA: No History of VRE: No History of CDIFF: No Surgical History Surgical History: BRAIN SURGERY status post sinus surgery Psychosocial History Who do you live with Spouse Services at Home None What is your primary language Palestinian Tobacco Use: Refused to answer Family History Hx Contributory? No (Hal Hurtado) Review of Systems Review of Systems Constitutional: Reports: no symptoms. EENTM: Reports: see HPI. Respiratory: Reports: see HPI. Cardiovascular: Reports: see HPI. GI: Reports: no symptoms. Genitourinary: Reports: no symptoms. Musculoskeletal: Reports: no symptoms. Skin: Reports: no symptoms. Neurological/Psychological: Reports: no symptoms. Hematologic/Endocrine: Reports: no symptoms. Immunologic/Allergic: Reports: no symptoms. All Other Systems: Reviewed and Negative (Hal Hurtado) Physical Exam Physical Exam General Appearance: well developed/nourished, alert, awake Head: atraumatic Eyes: Bilateral: normal appearance. Ears, Nose, Throat: normal ENT inspection, hearing grossly normal Neck: normal inspection Respiratory: normal breath sounds, no respiratory distress, chest wall tenerness right side Cardiovascular: regular rate/rhythm, tachycardia Gastrointestinal: soft Back: normal inspection Extremities: normal inspection Neurologic/Psych: awake, alert, oriented x 3, normal gait Skin: intact, normal color Core Measures ACS in differential dx? No CVA/TIA Diagnosis: No Sepsis Present: No Sepsis Focused Exam Completed? No (Neal SOL,Hal) Progress Differential Diagnoses I considered the following diagnoses in my evaluation of the patient: Strep throat, pneumonia, pulmonary embolism, IL, pulmonary infarct, Plan of Care: Orders Procedure Date/time Status TROPONIN LEVEL 01/20 140 Complete D-DIMER 01/20 1404 Complete COMPREHENSIVE METABOLIC PANEL 01/20 1404 Complete CBC WITHOUT DIFFERENTIAL 01/20 1404 Complete EKG 01/20 1404 Active RAPID VIRAL INFLUENZA A 01/20 1149 Complete THROAT CULTURE W/QUICK STREP 01/20 1149 Active Laboratory Tests 01/20/18 1420: Anion Gap 13, Estimated GFR > 60, BUN/Creatinine Ratio 22.0, Glucose 105 H, Calcium 9.0, Total Bilirubin 1.0, AST 36, ALT 79 H, Alkaline Phosphatase 63, Troponin I < 0.01, Total Protein 7.3, Albumin 4.2, Globulin 3.1, Albumin/ Globulin Ratio 1.4, D-Dimer High Sensitivty < 200, CBC w Diff NO MAN DIFF REQ, RBC 5.30, MCV 84.7, MCH 28.8, MCHC 34.0, RDW 15.0 H, MPV 8.8, Gran % 62.8, Lymphocytes % 16.9 L, Monocytes % 18.6 H, Eosinophils % 1.4, Basophils % 0.3, Absolute Granulocytes 7.2 H, Absolute Lymphocytes 1.9, Absolute Monocytes 2.1 H, Absolute Eosinophils 0.2, Absolute Basophils 0 Microbiology 01/20 1215 NASOPHARYN: Influenza Virus A & B Rapid Smear - COMP Diagnostic Imaging: Viewed by Me: Radiology Read. Discussed w/RAD: Radiology Read. Radiology Impression: PATIENT: ABEL MEDEIROS PRESENT AGE: 57 PATIENT ACCOUNT NO: [id number] : 56 LOCATION: [facility] ORDERING PHYSICIAN: Ethan Horner DO (TBS) SERVICE DATE: 01/20/18-1210 EXAM TYPE: RAD - XRY-CHEST XRAY, TWO VIEWS EXAMINATION: XR CHEST CLINICAL INFORMATION: Productive cough. Right-sided rib pain. COMPARISON: Chest radiograph 08/06/2017. TECHNIQUE: 2 views of the chest were obtained. FINDINGS: There is platelike atelectasis within the right lung. No overt consolidative disease or effusion. No pneumothorax. The cardiac silhouette and upper mediastinal contours are normal. No acute osseous finding. IMPRESSION: Platelike atelectasis right lung. No overt consolidative disease or effusion. DICTATED BY: Sotero Hamm MD DATE/TIME DICTATED:01/20/181257 CLASSROOM COORDINATOR:LUIS DATE/TIME TRANSCRIBED:01/20/181257 CONFIDENTIAL, DO NOT COPY WITHOUT APPROPRIATE AUTHORIZATION. <Electronically signed in Other Vendor System> SIGNED BY: Sotero Hamm MD 01/20/18 1301 Initial ED EKG: normal sinus rhythm, rate (105), nonspecific ST T wave chg Comments: 01/20/2018 6:03:05 PM Patient clinically looks well. Patient is in no apparent distress. Negative d- dimer. Symptoms are most consistent with muscle skeletal pain in the right rib area. Associated pneumonia is likely diagnosis. Patient treated with antibiotics. Return if any other concerns. Chest pain is reproducible. (Neal SOL,Hal) Departure Departure Disposition: HOME OR SELF CARE Condition: Stable Clinical Impression Primary Impression: Right lower lobe pneumonia Secondary Impressions: URI (upper respiratory infection) Referrals: Ford TREVIÑO,King Grey (PCP/Family) Additional Instructions: Take levofloxacin as prescribed. Follow-up with primary care doctor. Return if any concerns worsening symptoms. Please go over all results of today's visit with your primary care doctor. Contact your primary care doctor to let them know you were here in the emergency room. There may be nonspecific findings which may not be related to your visit today here in the emergency room but may require further evaluation and chronic monitoring by your primary care doctor. If you had a laceration today the chance of foreign body always remains. You should follow-up with your primary care doctor for recheck in 3-5 days for a wound check. If you had an x-ray done there is a chance that a fracture could have been missed on initial read and you should follow-up with your primary care doctor for repeat x-rays if symptoms persist. If your blood pressure was elevated here in the emergency room please have rechecked by our primary care doctor within the next 48. If you were prescribed a narcotic here in the emergency room or any type of controlled substances you're not allowed to drive while taking this medication or operate any type of heavy machinery. Narcotics can make you feel lightheaded dizziness nausea and can cause constipation. You may need to product picker a stool softener. Thank you for choosing [facility] emergency room. Please return to the emergency room immediately if you have any other concerns worsening of symptoms. Departure Forms: Customer Survey General Discharge Information Prescriptions: Current Visit Scripts Levofloxacin (Levaquin) 1 TAB PO DAILY #7 TAB Codeine Phosphate/Guaifenesi (Cheratussin AC Syrup) 5-10 ML PO Q6P PRN COUGH #100 ML (Hal Hurtado) PA/MERCHANDISE EXECUTION LEADER Co-Sign Statement Statement: ED Attending supervision documentation- [] I saw and evaluated the patient. I have also reviewed all the pertinent lab results and diagnostic results. I agree with the findings and the plan of care as documented in the PA's/MERCHANDISE EXECUTION LEADER's documentation. [X] I have reviewed the ED Record and agree with the PA's/MERCHANDISE EXECUTION LEADER's documentation. [] Additions or exceptions (if any) to the PAs/MERCHANDISE EXECUTION LEADER's note and plan are summarized below: [] (Sadia TREVIÑO,King Carmona) Critical Care Note Critical Care Note Critical Care Time: non-applicable (aHl Hurtado)
[2018-01-20 14:49] LABS: ABSOLUTE BASOPHIL COUNT 0 /CUMM (0.0-0.2); ABSOLUTE EOSINOPHIL COUNT 0.2 /CUMM (0.0-0.7); ABSOLUTE GRANULOCYTE CT 7.2 /CUMM (1.4-6.5); ABSOLUTE LYMPH COUNT 1.9 /CUMM (1.2-3.4); ABSOLUTE MONOCYTE COUNT 2.1 /CUMM (0.10-0.60); BASOPHIL % 0.3 % (0.0-2.0); EOSINOPHIL % 1.4 % (0-5); GRANULOCYTE % 62.8 % (42.2-75.2); HEMATOCRIT 44.9 % (42-52); MEAN CORPUSCULAR HGB 28.8 PG (27.0-31.0); MEAN CORPUSCULAR VOLUME 84.7 FL (80.0-94.0); MEAN PLATELET VOLUME 8.8 FL (7.4-10.4); PLATELET COUNT 179 /CUMM (130-400); WHITE BLOOD CELL COUNT 11.4 /CUMM (4.8-10.8)
[2018-01-20] MEDS ORDERED: CHERATUSSIN AC118 M1 PO (15:40)
[2018-01-20] MEDS ORDERED: LEVAQUIN750 M1 PO (15:40)
[2018-01-20 15:48] VITALS: BP 135/86
== END 2018-01-20 15:49 ==
LOC: ERH 11:46
PROVIDERS: Physician Assistant Medical
DX: J18.9 Pneumonia, unspecified organism (principal); J06.9 Acute upper respiratory infection, unspecified
CPT/HCPCS: 1263; 71046; 87804; 87804-59; 93005; 93010; 96374